=== PATIENT | female | born 2000 | race Caucasian/White ===

== ENCOUNTER → 2023-02-05 13:06 | Outpatient (CLI) | payer OTHER, SELFPAY ==
--- NOTE | 2023-02-07 16:31 | PM.PFT.1 ---
Pulmonary Function Test Referral & Results Date Patient Seen: 02/05/23 Results: The spirometry demonstrates an FVC of 3.90 L which is 99% of predicted. The FEV1 was measured at 2.87 L which is 85% of predicted. The FEV1/FVC ratio was 74 which is 85% of predicted. Interpretation: This study, which was done as forced spirometry alone, demonstrates probably normal pulmonary function. There may be a minimal reduction FEV1 suggesting the presence of minimal obstructive lung disease, although shape a flow volume loop does not really support this Clinical correlation suggested
== END ==
PROVIDERS: Referring Provider Chiropractor; Visit Provider Chiropractor
DX: J45.909 Unspecified asthma, uncomplicated (principal)
CPT/HCPCS: 94010; 94060

== ENCOUNTER 2024-06-03 10:30 | Outpatient (RCR) | payer OTHER, SELFPAY ==
--- NOTE | 2024-04-08 17:47 | PT.OIE ---
Current Diagnoses Hypermobility syndrome (04/08/24) Muscle weakness (generalized) (04/08/24) Abnormal posture (04/08/24) Visit Care Team Role Provider Type Malena Angel MD Attending Provider Non-Staff Family Provider Primary Care Provider Referring Provider Specialty: Family Practice Address: [address] [place] [address], [place], [address] Email: Physical Therapy Initial Evaluation PT-OP-A Visit Information Start: 04/08/24 07:38 Freq: Status: Active Protocol: Document 04/08/24 15:15 [facility] (Rec: 04/08/24 16:05 [facility] [id number]) Out-Patient Physical Therapy Visit Information Visit Information Visit Type Initial Evaluation Visit Start Time 15:17 Visit Stop Time 16:03 Visit Number 11/03 Number of [employer]WORK ENGINEER Visits 0 PT-OP-B Current Condition Start: 04/08/24 07:38 Freq: Status: Active Protocol: Document 04/08/24 15:15 [facility] (Rec: 04/08/24 16:05 [facility] [id number]) Current Condition History of Current Condition Onset Date childhood Current Complaints widespread pain (neck, wrists, knees) History of Current Condition Pt reports she has always had a bit of widespread pain. most frequnetly tendonitis issues that affects her all day long and her ability to sleep. her neck, wrist and knees are the areas she feels impact her the most. She is trying to figure out how to use her body correctly and dec pain. She said she keeps trying to get to see a ticket seller, but [facility] . Her mom got diagnosed recently w/mitral valve prolapse. recently just got ADHD dx. Trying to go to school and is planning to go to [employer]. 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 Pt reports talkign to her mom, she was evaled for jeuvinile RA and it was inconclusive. She has had pain since she was small. She has had Xrays for neck and back when she was going through disability process. Cervical spine strain noted; B cervical radiculopathy, sciatic radiculopathy, cervical instability are the diagnoses that came from imaging[place]. She was only going 1x/month and one issue at a time. She has had some labwork but unsure what and that was normal so far. lightheadedness and dizziness w/supine to sit and sit to stand and strenuous exercise; GONZALEZ -mostly frontal and post ear B-doesn't know triggers- will get sensitive to light and noise and has to go lay down in dark. Jaw pain also with eating and when wake up. sometimes so tense she has to massage it. mom has told her she grinds at night; she doenst notice clenching at night and eating sometimes makes it more sore. Dentist plans to wait to see if pain persists beofre giving mouth guard. knee pain is in ant knee and inf to patella. Hx of ankle strains Treatment Goals Patient/Caregiver Goals learn how to properly engage her muscles and avoid compensations & movement patterns; Learn what is normal ROM so can learn how to avoid excessive mobility; gain strength PT-OP-D Balance Start: 04/08/24 07:38 Freq: Status: Active Protocol: Document 04/08/24 15:15 [facility] (Rec: 04/08/24 16:05 [facility] [id number]) Balance Tests Single Limb Standing Single Limb- Right >30 sec- pt a little wobbly Single Limb- Left >30 sec- pt a little wobbly PT-OP-F Manual Assessment Start: 04/08/24 07:38 Freq: Status: Active Protocol: Document 04/08/24 15:15 [facility] (Rec: 04/08/24 16:05 [facility] [id number]) Manual Assessments Joint Mobility Assessment Joint Mobility Assessment tenderness B patellar tendon, B quads, B calves, ITB, R HS Other Manual Assessments Other Manual Assessments / Beighton scale PT-OP-G Mobility & Gait Start: 04/08/24 07:38 Freq: Status: Active Protocol: Document 04/08/24 15:15 [facility] (Rec: 04/08/24 16:05 [facility] [id number]) OP Gait Assessment Comments Gait Comments dec push off B; dec LUE arm swing PT-OP-J Posture/Palpation/Skin Start: 04/08/24 07:38 Freq: Status: Active Protocol: Document 04/08/24 15:15 [facility] (Rec: 04/08/24 16:05 [facility] [id number]) Posture Evaluation Gisele Postural Classification System Gisele Postural Classifications Posterior/Posterior Vertebral Compression Test 0 Elbow Flexion Test 1 Lumbar Protective Mechanism Left AP 0 Lumbar Protective Mechanism Right AP 0 Lumbar Protective Mechanism Left PA 0 Lumbar Protective Mechanism Right PA 0 Comments Posture Comments hyperext knees, L foot toed out, inc lorodosis, rot L trunk, ant tip B scap, slight fwd head PT-OP-K Range of Motion Start: 04/08/24 07:38 Freq: Status: Active Protocol: Document 04/08/24 15:15 [facility] (Rec: 04/08/24 16:05 [facility] [id number]) Cervical Spine Range of Motion Cervical Spine Active Degrees Flexion 69 Extension 65 Rotation Left 85 Rotation Right 81 Lateral Flexion Left 52 Lateral Flexion Right 49 Comments pain contralat side w/SB and rotation; post pain w/flex/ext ; 100% rot of trunk to L; 80% R w/pain in LB Ankle and Foot Goniometric Range of Motion Ankle and Foot ROM Limitations Comments 2 in to wall B PT-OP-M Strength Start: 04/08/24 07:38 Freq: Status: Active Protocol: Document 04/08/24 15:15 [facility] (Rec: 04/08/24 16:05 [facility] [id number]) Shoulder Strength Shoulder Manual Muscle Testing Right Flexion 4+ Good+ Extension 4+ Good+ Abduction (C5) 4+ Good+ External Rotation 4 Good Internal Rotation 4- Good- Left Flexion 4+ Good+ Extension 4+ Good+ Abduction (C5) 4 Good External Rotation 4 Good Internal Rotation 4- Good- Elbow/Forearm Strength Elbow and Forearm Manual Muscle Testing Right Flexion (C6) 4 Good Extension (C7) 5 Normal Pronation 4 Good Supination 4 Good Left Flexion (C6) 4 Good Extension (C7) 4+ Good+ Pronation 4 Good Supination 4 Good Comments pain w/MMT B Wrist Strength Wrist Manual Muscle Testing Left Flexion (C7) 4+ Good+ Extension (C6) 4+ Good+ Ulnar Deviation 5 Normal Radial Deviation 5 Normal Right Flexion (C7) 4+ Good+ Extension (C6) 4+ Good+ Ulnar Deviation 5 Normal Radial Deviation 5 Normal Comments painful W/MMT Hip Strength Hip Manual Muscle Testing Right Flexion (L2) 3+ Fair+ Extension (S1) 4+ Good+ Abduction 3+ Fair+ Adduction 3+ Fair+ External Rotation 4 Good Internal Rotation 4+ Good+ Left Flexion (L2) 3+ Fair+ Extension (S1) 4+ Good+ Abduction 3+ Fair+ Adduction 3+ Fair+ External Rotation 4 Good Internal Rotation 4+ Good+ Comments pain hip flexors w/hip flex Knee Strength Knee Manual Muscle Testing Right Flexion (S2) 4- Good- Extension (L3) 4 Good Left Flexion (S2) 4- Good- Extension (L3) 4 Good Comments pain ext -minor lat tracking B -frank neg Ankle/Foot Strength Ankle and Foot Manual Muscle Testing Right Dorsiflexion (L4) 5 Normal Plantarflexion (S1) 5 Normal Left Dorsiflexion (L4) 5 Normal Plantarflexion (S1) 5 Normal Comments 20 heel raises B PT-OP-T Assessment and Plan Start: 04/08/24 07:38 Freq: Status: Active Protocol: Document 04/08/24 15:15 [facility] (Rec: 04/08/24 16:05 [facility] [id number]) Physical Therapy Assessment Rehab Potential Rehabilitation Potential Good Evaluation Complexity Number of Personal Factors/Comorbidities 3 or More Number of Body Systems Impaired 4 or More Clinical Presentation at Evaluation Unstable Impairments Impairments Activity Tolerance,Balance, Functional Activities, Functional Mobility,Gait,Pain, Posture,ROM,Soft Tissue Mobility,Strength Goals mobility Short Term Goal (STG) Pt will have improved ankle DF to at least 3 in to wall in order to improve knee mechanics and improve knee pain STG Duration 05/18 [facility]itentiary Goal (LTG) Pt will have improved ankle DF to at least 4 in to wall in order to improve knee mechanics and improve knee pain LTG Duration 07/01 posture Short Term Goal (STG) Pt will score at least 2/5 on VCT in order to show improved postural stability. STG Duration 05/18 Penitentiary Goal (LTG) Pt will score at least 4/5 on VCT in order to show improved postural stability. LTG Duration 06/29 strength Short Term Goal (STG) Pt will be indep w/HEP for strength, moblity and posture. STG Duration 05/18 Penitentiary Goal (LTG) Pt will score at least 4+/5 on all LE and UE MMT B and at least 3/5 on EFT and LPM to show improved stability to make daily activities easier w /dec pain. LTG Duration 07/01 Assessment Summary Assessment Pt presents w/chronic pain throughout entire body that has been present since childhood w/no official diagnoses. She is most concerned re: B wrist pain, B knee pain and neck pain. She is 9/9 on Beighton scale which does show indication of hypermobility as MD referring diagnosis suggested. She has pain w/ROM and MMT and has weakness in core and poor postural alignment, which likely all contribute to her pain. [facility], but has not been seen yet and was told there is a long waitlist. She would benefit from skilled PT in order to work on postural stability, core stability, balance, gait mechanics and strength of UE and LE. Physical Therapy Plan Frequency and Duration Frequency of Treatment 2x/Week Duration of treatment (weeks) 12 Plan of Care Start Date 04/08/24 Plan of Care End Date 07/01/24 Therapeutic Interventions Therapeutic Interventions Balance Training,Gait Training ,Home Exercise Program,Joint Mobilizations,Manual Therapy, Neuromuscular Re-education, Patient/Caregiver Education, Self-Care/Home Management,Soft Tissue Mobilization,Taping, Therapeutic Activities, Therapeutic Exercises Next Visit Focus/Plan Next Note Type Treatment Note Next Visit Plan Start core exercsies and multijoint exercises; calf stretch, paloff press, bird dog/plank modified if tolerated, attempt squat versions manual: mobilize ankle joints & STM to calf; consider taping of knees
--- NOTE | 2024-04-08 17:47 | PT.OPPOC ---
Physical, Occupational & Speech Therapy At [facility] Current Diagnoses Hypermobility syndrome (04/08/24) Muscle weakness (generalized) (04/08/24) Abnormal posture (04/08/24) Visit Care Team Role Provider Type Malena Angel MD Attending Provider Non-Staff Family Provider Primary Care Provider Referring Provider Specialty: Family Practice Address: [address] [place] [address], [facility] Email: Plan Of Care PT-OP-T Assessment and Plan Start: 04/08/24 07:38 Freq: Status: Active Protocol: Document 04/08/24 15:15 [facility] (Rec: 04/08/24 16:05 [facility] [id number]) Physical Therapy Assessment Rehab Potential Rehabilitation Potential Good Evaluation Complexity Number of Personal Factors/Comorbidities 3 or More Number of Body Systems Impaired 4 or More Clinical Presentation at Evaluation Unstable Impairments Impairments Activity Tolerance,Balance, Functional Activities, Functional Mobility,Gait,Pain, Posture,ROM,Soft Tissue Mobility,Strength Goals mobility Short Term Goal (STG) Pt will have improved ankle DF to at least 3 in to wall in order to improve knee mechanics and improve knee pain STG Duration 05/18 [facility] Goal (LTG) Pt will have improved ankle DF to at least 4 in to wall in order to improve knee mechanics and improve knee pain LTG Duration 07/01 posture Short Term Goal (STG) Pt will score at least 2/5 on VCT in order to show improved postural stability. STG Duration 05/18 Doctor Of Podiatry Goal (LTG) Pt will score at least 4/5 on VCT in order to show improved postural stability. LTG Duration 06/29 strength Short Term Goal (STG) Pt will be indep w/HEP for strength, moblity and posture. STG Duration 05/18 Doctor Of Podiatry Goal (LTG) Pt will score at least 4+/5 on all LE and UE MMT B and at least 3/5 on EFT and LPM to show improved stability to make daily activities easier w /dec pain. LTG Duration 07/01 Assessment Summary Assessment Pt presents w/chronic pain throughout entire body that has been present since childhood w/no official diagnoses. She is most concerned re: B wrist pain, B knee pain and neck pain. She is 9/9 on Beighton scale which does show indication of hypermobility as MD referring diagnosis suggested. She has pain w/ROM and MMT and has weakness in core and poor postural alignment, which likely all contribute to her pain. [facility], but has not been seen yet and was told there is a long waitlist. She would benefit from skilled PT in order to work on postural stability, core stability, balance, gait mechanics and strength of UE and LE. Physical Therapy Plan Frequency and Duration Frequency of Treatment 2x/Week Duration of treatment (weeks) 12 Plan of Care Start Date 04/08/24 Plan of Care End Date 07/01/24 Therapeutic Interventions Therapeutic Interventions Balance Training,Gait Training ,Home Exercise Program,Joint Mobilizations,Manual Therapy, Neuromuscular Re-education, Patient/Caregiver Education, Self-Care/Home Management,Soft Tissue Mobilization,Taping, Therapeutic Activities, Therapeutic Exercises Next Visit Focus/Plan Next Note Type Treatment Note Next Visit Plan Start core exercsies and multijoint exercises; calf stretch, paloff press, bird dog/plank modified if tolerated, attempt squat versions manual: mobilize ankle joints & STM to calf; consider taping of knees Plan of Care Dates Plan of Care Start Date 04/08/24 Plan of Care End Date 07/01/24 Electronically Signed by: Delisa Ortiz, PT 04/08/24 2007 If you are in agreement with this Plan of Care, please return a signed and dated copy. I have reviewed this Plan of Care and certify that the skilled therapy services above are required to meet the patient?s needs. Physician Signature Date Printed Name and Credentials Clinical Instructor Signature Printed Name and Credentials
--- NOTE | 2024-04-13 18:17 | PT.OTN ---
Current Diagnoses Hypermobility syndrome (04/13/24) Muscle weakness (generalized) (04/13/24) Abnormal posture (04/13/24) Physical Therapy Treatment Note PT-OP-A Visit Information Start: 04/08/24 07:38 Freq: Status: Active Protocol: Document 04/13/24 16:52 [facility] (Rec: 04/13/24 18:16 [facility] [id number]) Out-Patient Physical Therapy Visit Information Visit Information Visit Type Treatment Note Visit Start Time 16:52 Visit Stop Time 17:35 Visit Number 2/15 Number of BIAS CUTTING MACHINE OPERATOR VERTICAL Visits 0 PT-OP-B Current Condition Start: 04/08/24 07:38 Freq: Status: Active Protocol: Document 04/08/24 15:15 [facility] (Rec: 04/08/24 16:05 [facility] [id number]) Current Condition History of Current Condition Onset Date childhood Current Complaints widespread pain (neck, wrists, knees) History of Current Condition Pt reports she has always had a bit of widespread pain. most frequnetly tendonitis issues that affects her all day long and her ability to sleep. her neck, wrist and knees are the areas she feels impact her the most. She is trying to figure out how to use her body correctly and dec pain. She said she keeps trying to get to see a sign maintenance, but has been unable d[place]t [facility] [place] . Her mom got diagnosed recently w/mitral valve prolapse. recently just got ADHD dx. Trying to go to school and is planning to go to [employer]. 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 Pt reports talkign to her mom, she was evaled for jeuvinile RA and it was inconclusive. She has had pain since she was small. She has had Xrays for neck and back when she was going through disability process. Cervical spine strain noted; B cervical radiculopathy, sciatic radiculopathy, cervical instability are the diagnoses that came from imaging[place]. She was only going 1x/month and one issue at a time. She has had some labwork but unsure what and that was normal so far. lightheadedness and dizziness w/supine to sit and sit to stand and strenuous exercise; GONZALEZ -mostly frontal and post ear B-doesn't know triggers- will get sensitive to light and noise and has to go lay down in dark. Jaw pain also with eating and when wake up. sometimes so tense she has to massage it. mom has told her she grinds at night; she doenst notice clenching at night and eating sometimes makes it more sore. Dentist plans to wait to see if pain persists beofre giving mouth guard. knee pain is in ant knee and inf to patella. Hx of ankle strains Treatment Goals Patient/Caregiver Goals learn how to properly engage her muscles and avoid compensations & movement patterns; Learn what is normal ROM so can learn how to avoid excessive mobility; gain strength PT-OP-C Subjective Start: 04/08/24 07:38 Freq: Status: Active Protocol: Document 04/13/24 16:52 [facility] (Rec: 04/13/24 18:16 [facility] [id number]) OP-PT Subjective Patient Comments Patient Comments pt reports she tried pilates but had difficulty keeping joints in correct place during exercises. PT-OP-D Balance Start: 04/08/24 07:38 Freq: Status: Active Protocol: Document 04/08/24 15:15 [facility] (Rec: 04/08/24 16:05 [facility] [id number]) Balance Tests Single Limb Standing Single Limb- Right >30 sec- pt a little wobbly Single Limb- Left >30 sec- pt a little wobbly PT-OP-F Manual Assessment Start: 04/08/24 07:38 Freq: Status: Active Protocol: Document 04/08/24 15:15 [facility] (Rec: 04/08/24 16:05 [facility] [id number]) Manual Assessments Joint Mobility Assessment Joint Mobility Assessment tenderness B patellar tendon, B quads, B calves, ITB, R HS Other Manual Assessments Other Manual Assessments / Beighton scale PT-OP-G Mobility & Gait Start: 04/08/24 07:38 Freq: Status: Active Protocol: Document 04/08/24 15:15 [facility] (Rec: 04/08/24 16:05 [facility] [id number]) OP Gait Assessment Comments Gait Comments dec push off B; dec LUE arm swing PT-OP-J Posture/Palpation/Skin Start: 04/08/24 07:38 Freq: Status: Active Protocol: Document 04/08/24 15:15 [facility] (Rec: 04/08/24 16:05 [facility] [id number]) Posture Evaluation [facility] Postural Classification System [facility] Postural Classifications Posterior/Posterior Vertical Compression Test 0 Elbow Flexion Test 1 Lumbar Protective Mechanism Left AP 0 Lumbar Protective Mechanism Right AP 0 Lumbar Protective Mechanism Left PA 0 Lumbar Protective Mechanism Right PA 0 Comments Posture Comments hyperext knees, L foot toed out, inc lorodosis, rot L trunk, ant tip B scap, slight fwd head PT-OP-K Range of Motion Start: 04/08/24 07:38 Freq: Status: Active Protocol: Document 04/08/24 15:15 [facility] (Rec: 04/08/24 16:05 [facility] [id number]) Cervical Spine Range of Motion Cervical Spine Active Degrees Flexion 69 Extension 65 Rotation Left 85 Rotation Right 81 Lateral Flexion Left 52 Lateral Flexion Right 49 Comments pain contralat side w/SB and rotation; post pain w/flex/ext ; 100% rot of trunk to L; 80% R w/pain in LB Ankle and Foot Goniometric Range of Motion Ankle and Foot ROM Limitations Comments 2 in to wall B PT-OP-M Strength Start: 04/08/24 07:38 Freq: Status: Active Protocol: Document 04/08/24 15:15 [facility] (Rec: 04/08/24 16:05 [facility] [id number]) Shoulder Strength Shoulder Manual Muscle Testing Right Flexion 4+ Good+ Extension 4+ Good+ Abduction (C5) 4+ Good+ External Rotation 4 Good Internal Rotation 4- Good- Left Flexion 4+ Good+ Extension 4+ Good+ Abduction (C5) 4 Good External Rotation 4 Good Internal Rotation 4- Good- Elbow/Forearm Strength Elbow and Forearm Manual Muscle Testing Right Flexion (C6) 4 Good Extension (C7) 5 Normal Pronation 4 Good Supination 4 Good Left Flexion (C6) 4 Good Extension (C7) 4+ Good+ Pronation 4 Good Supination 4 Good Comments pain w/MMT B Wrist Strength Wrist Manual Muscle Testing Left Flexion (C7) 4+ Good+ Extension (C6) 4+ Good+ Ulnar Deviation 5 Normal Radial Deviation 5 Normal Right Flexion (C7) 4+ Good+ Extension (C6) 4+ Good+ Ulnar Deviation 5 Normal Radial Deviation 5 Normal Comments painful W/MMT Hip Strength Hip Manual Muscle Testing Right Flexion (L2) 3+ Fair+ Extension (S1) 4+ Good+ Abduction 3+ Fair+ Adduction 3+ Fair+ External Rotation 4 Good Internal Rotation 4+ Good+ Left Flexion (L2) 3+ Fair+ Extension (S1) 4+ Good+ Abduction 3+ Fair+ Adduction 3+ Fair+ External Rotation 4 Good Internal Rotation 4+ Good+ Comments pain hip flexors w/hip flex Knee Strength Knee Manual Muscle Testing Right Flexion (S2) 4- Good- Extension (L3) 4 Good Left Flexion (S2) 4- Good- Extension (L3) 4 Good Comments pain ext -minor lat tracking B -frank neg Ankle/Foot Strength Ankle and Foot Manual Muscle Testing Right Dorsiflexion (L4) 5 Normal Plantarflexion (S1) 5 Normal Left Dorsiflexion (L4) 5 Normal Plantarflexion (S1) 5 Normal Comments 20 heel raises B PT-OP-Q Treatments Start: 04/08/24 07:38 Freq: Status: Active Protocol: Document 04/13/24 16:52 [facility] (Rec: 04/13/24 18:16 [facility] [id number]) Therapeutic Exercises Prone Exercises plank Prone Exercise Name full Side bilateral Reps/Minutes [id number] Comments cues for neutral spine and neck Standing Exercises paloff press Side bilateral Equipment Used 1 green band Reps/Minutes 15 ea Comments cues neutral spine and wrists squat Side bilateral Reps/Minutes 10 Comments cues neutral back hip hinge Standing Exercise Name w/dowel on back Side bilateral Reps/Minutes 15 Comments cues no spine motion Other Exercises bird dog Side bilateral Equipment Used foam roll on back Reps/Minutes 12 ea Comments cues neutral spine and neck Manual Therapy Treatment Consent Patient gave verbal consent for manual Yes treatment Joint Mobilizations ankle/foot Comments B calcaneal distraction FM R lat tilt and glide FM R distal fibular proximal FM PT-OP-T Assessment and Plan Start: 04/08/24 07:38 Freq: Status: Active Protocol: Document 04/13/24 16:52 [facility] (Rec: 04/13/24 17:43 [facility] [id number]) Physical Therapy Assessment Goals mobility Short Term Goal (STG) Pt will have improved ankle DF to at least 3 in to wall in order to improve knee mechanics and improve knee pain STG Duration 05/18 [facility]ci Goal (LTG) Pt will have improved ankle DF to at least 4 in to wall in order to improve knee mechanics and improve knee pain LTG Duration 07/01 posture Short Term Goal (STG) Pt will score at least 2/5 on VCT in order to show improved postural stability. STG Duration 05/18 Assistant Community Manager Goal (LTG) Pt will score at least 4/5 on VCT in order to show improved postural stability. LTG Duration 06/29 strength Short Term Goal (STG) Pt will be indep w/HEP for strength, moblity and posture. STG Duration 05/18 Assistant Community Manager Goal (LTG) Pt will score at least 4+/5 on all LE and UE MMT B and at least 3/5 on EFT and LPM to show improved stability to make daily activities easier w /dec pain. LTG Duration 07/01 Assessment Summary Assessment Pt required inc time to work on form w/exercises and work on neutral spine position and isolation of spine. She did improve w/cues and education throughout session. Improved B DF w/manual care. Physical Therapy Plan Frequency and Duration Frequency of Treatment 2x/Week Duration of treatment (weeks) 12 Plan of Care Start Date 04/08/24 Plan of Care End Date 07/01/24 Next Visit Focus/Plan Next Note Type Treatment Note Next Visit Plan review exercises; cont to advance exercise progression for multi joint exercises work on B ankle mobility
--- NOTE | 2024-04-15 16:17 | PT.OTN ---
Current Diagnoses Hypermobility syndrome (04/15/24) Muscle weakness (generalized) (04/15/24) Abnormal posture (04/15/24) Physical Therapy Treatment Note PT-OP-A Visit Information Start: 04/08/24 07:38 Freq: Status: Active Protocol: Document 04/15/24 13:48 [facility] (Rec: 04/15/24 16:15 [facility] [id number]) Out-Patient Physical Therapy Visit Information Visit Information Visit Type Treatment Note Visit Note Visit [email or web address] Access Code: [email or web address] Pt late, attributes to the line at check in. Visit Start Time 14:38 Visit Stop Time 15:15 Visit Number 3/ Number of OBSTETRICS GYNECOLOGY MD Visits 1 PT-OP-B Current Condition Start: 04/08/24 07:38 Freq: Status: Active Protocol: Document 04/08/24 15:15 [facility] (Rec: 04/08/24 16:05 [facility] [id number]) Current Condition History of Current Condition Onset Date childhood Current Complaints widespread pain (neck, wrists, knees) History of Current Condition Pt reports she has always had a bit of widespread pain. most frequnetly tendonitis issues that affects her all day long and her ability to sleep. her neck, wrist and knees are the areas she feels impact her the most. She is trying to figure out how to use her body correctly and dec pain. She said she keeps trying to get to see a appraiser irrigation tax, but has been unable d/t [facility] process . Her mom got diagnosed recently w/mitral valve prolapse. recently just got ADHD dx. Trying to go to school and is planning to go to [place]. 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 Pt reports talkign to her mom, she was evaled for jeuvinile RA and it was inconclusive. She has had pain since she was small. She has had Xrays for neck and back when she was going through disability process. Cervical spine strain noted; B cervical radiculopathy, sciatic radiculopathy, cervical instability are the diagnoses that came from imaging[place]. She was only going 1x/month and one issue at a time. She has had some labwork but unsure what and that was normal so far. lightheadedness and dizziness w/supine to sit and sit to stand and strenuous exercise; GONZALEZ -mostly frontal and post ear B-doesn't know triggers- will get sensitive to light and noise and has to go lay down in dark. Jaw pain also with eating and when wake up. sometimes so tense she has to massage it. mom has told her she grinds at night; she doenst notice clenching at night and eating sometimes makes it more sore. Dentist plans to wait to see if pain persists beofre giving mouth guard. knee pain is in ant knee and inf to patella. Hx of ankle strains Treatment Goals Patient/Caregiver Goals learn how to properly engage her muscles and avoid compensations & movement patterns; Learn what is normal ROM so can learn how to avoid excessive mobility; gain strength PT-OP-C Subjective Start: 04/08/24 07:38 Freq: Status: Active Protocol: Document 04/15/24 13:48 [facility] (Rec: 04/15/24 16:15 [facility] [id number]) OP-PT Subjective Patient Comments Patient Comments Patient reports she is the same. Patient reports 01/27 start of session. PT-OP-D Balance Start: 04/08/24 07:38 Freq: Status: Active Protocol: Document 04/08/24 15:15 [facility] (Rec: 04/08/24 16:05 [facility] [id number]) Balance Tests Single Limb Standing Single Limb- Right >30 sec- pt a little wobbly Single Limb- Left >30 sec- pt a little wobbly PT-OP-F Manual Assessment Start: 04/08/24 07:38 Freq: Status: Active Protocol: Document 04/08/24 15:15 [facility] (Rec: 04/08/24 16:05 [facility] [id number]) Manual Assessments Joint Mobility Assessment Joint Mobility Assessment tenderness B patellar tendon, B quads, B calves, ITB, R HS Other Manual Assessments Other Manual Assessments 06/28 Beighton scale PT-OP-G Mobility & Gait Start: 04/08/24 07:38 Freq: Status: Active Protocol: Document 04/08/24 15:15 [facility] (Rec: 04/08/24 16:05 [facility] [id number]) OP Gait Assessment Comments Gait Comments dec push off B; dec LUE arm swing PT-OP-J Posture/Palpation/Skin Start: 04/08/24 07:38 Freq: Status: Active Protocol: Document 04/08/24 15:15 [facility] (Rec: 04/08/24 16:05 [facility] [id number]) Posture Evaluation [facility] Postural Classification System [facility] Postural Classifications Posterior/Posterior Vertical Compression Test 0 Elbow Flexion Test 1 Lumbar Protective Mechanism Left AP 0 Lumbar Protective Mechanism Right AP 0 Lumbar Protective Mechanism Left PA 0 Lumbar Protective Mechanism Right PA 0 Comments Posture Comments hyperext knees, L foot toed out, inc lorodosis, rot L trunk, ant tip B scap, slight fwd head PT-OP-K Range of Motion Start: 04/08/24 07:38 Freq: Status: Active Protocol: Document 04/08/24 15:15 [facility] (Rec: 04/08/24 16:05 [facility] [id number]) Cervical Spine Range of Motion Cervical Spine Active Degrees Flexion 69 Extension 65 Rotation Left 85 Rotation Right 81 Lateral Flexion Left 52 Lateral Flexion Right 49 Comments pain contralat side w/SB and rotation; post pain w/flex/ext ; 100% rot of trunk to L; 80% R w/pain in LB Ankle and Foot Goniometric Range of Motion Ankle and Foot ROM Limitations Comments 2 in to wall B PT-OP-M Strength Start: 04/08/24 07:38 Freq: Status: Active Protocol: Document 04/08/24 15:15 [facility] (Rec: 04/08/24 16:05 [facility] [id number]) Shoulder Strength Shoulder Manual Muscle Testing Right Flexion 4+ Good+ Extension 4+ Good+ Abduction (C5) 4+ Good+ External Rotation 4 Good Internal Rotation 4- Good- Left Flexion 4+ Good+ Extension 4+ Good+ Abduction (C5) 4 Good External Rotation 4 Good Internal Rotation 4- Good- Elbow/Forearm Strength Elbow and Forearm Manual Muscle Testing Right Flexion (C6) 4 Good Extension (C7) 5 Normal Pronation 4 Good Supination 4 Good Left Flexion (C6) 4 Good Extension (C7) 4+ Good+ Pronation 4 Good Supination 4 Good Comments pain w/MMT B Wrist Strength Wrist Manual Muscle Testing Left Flexion (C7) 4+ Good+ Extension (C6) 4+ Good+ Ulnar Deviation 5 Normal Radial Deviation 5 Normal Right Flexion (C7) 4+ Good+ Extension (C6) 4+ Good+ Ulnar Deviation 5 Normal Radial Deviation 5 Normal Comments painful W/MMT Hip Strength Hip Manual Muscle Testing Right Flexion (L2) 3+ Fair+ Extension (S1) 4+ Good+ Abduction 3+ Fair+ Adduction 3+ Fair+ External Rotation 4 Good Internal Rotation 4+ Good+ Left Flexion (L2) 3+ Fair+ Extension (S1) 4+ Good+ Abduction 3+ Fair+ Adduction 3+ Fair+ External Rotation 4 Good Internal Rotation 4+ Good+ Comments pain hip flexors w/hip flex Knee Strength Knee Manual Muscle Testing Right Flexion (S2) 4- Good- Extension (L3) 4 Good Left Flexion (S2) 4- Good- Extension (L3) 4 Good Comments pain ext -minor lat tracking B -frank neg Ankle/Foot Strength Ankle and Foot Manual Muscle Testing Right Dorsiflexion (L4) 5 Normal Plantarflexion (S1) 5 Normal Left Dorsiflexion (L4) 5 Normal Plantarflexion (S1) 5 Normal Comments 20 heel raises B PT-OP-Q Treatments Start: 04/08/24 07:38 Freq: Status: Active Protocol: Document 04/15/24 13:48 [facility] (Rec: 04/15/24 16:15 [facility] [id number]) Therapeutic Exercises Sidelying Exercises open book Sidelying Exercise Name open book Reps/Minutes X3 for 3 breaths Sitting Exercises AROM DF Side bilateral Reps/Minutes one minute Comments verbal cues seated hip abduction Side bilateral Resistance level 4 blue band Reps/Minutes one minute Standing Exercises calf stretches Standing Exercise Name gastroc & soleus Reps/Minutes 2X 60 seconds each stretch Comments verbal and visual cues squat Standing Exercise Name squat with band Resistance level 4 blue band Reps/Minutes 10 Manual Therapy Treatment Consent Patient gave verbal consent for manual Yes treatment Soft Tissue Mobilization calf muscles Body Location bilateral calf muscles Mobilization Type Cross-Friction,Rolling Intensity/Depth Moderate Body Position Prone Comments avoiding bruises bilateral calf muscles, monitored for pain Joint Mobilizations ankle/foot Joint bilateral talocrural Direction AP Grade IV Body Position Standing Reps/Duration 2x10 each LE Comments Mulligan with movement TC mobilization PT-OP-T Assessment and Plan Start: 04/08/24 07:38 Freq: Status: Active Protocol: Document 04/15/24 13:48 [facility] (Rec: 04/15/24 16:15 [facility] [id number]) Physical Therapy Assessment Goals mobility Short Term Goal (STG) Pt will have improved ankle DF to at least 3 in to wall in order to improve knee mechanics and improve knee pain STG Duration 05/18 Detention Goal (LTG) Pt will have improved ankle DF to at least 4 in to wall in order to improve knee mechanics and improve knee pain LTG Duration 07/01 posture Short Term Goal (STG) Pt will score at least 2/5 on VCT in order to show improved postural stability. STG Duration 05/18 Detention Goal (LTG) Pt will score at least 4/5 on VCT in order to show improved postural stability. LTG Duration 06/29 strength Short Term Goal (STG) Pt will be indep w/HEP for strength, moblity and posture. STG Duration 05/18 Detention Goal (LTG) Pt will score at least 4+/5 on all LE and UE MMT B and at least 3/5 on EFT and LPM to show improved stability to make daily activities easier w /dec pain. LTG Duration 07/01 Assessment Summary Assessment Patient able to perform squat with band with good form adequate hip hinge, rates all over body pain 4/10 end of session ie no change. Physical Therapy Plan Frequency and Duration Frequency of Treatment 2x/Week Duration of treatment (weeks) 12 Plan of Care Start Date 04/08/24 Plan of Care End Date 07/01/24 Next Visit Focus/Plan Next Note Type Treatment Note Next Visit Plan review exercises; cont to advance exercise progression for multi joint exercises work on B ankle mobility, assess iveth to previous session and HEP updates
--- NOTE | 2024-04-20 18:21 | PT.OTN ---
Addendum entered and electronically signed by Delisa Ortiz, PT 04/22/24 13:17: PT direct supervision and direction to student PT Erik Whalen throughout session Original Note: Current Diagnoses Hypermobility syndrome (04/20/24) Muscle weakness (generalized) (04/20/24) Abnormal posture (04/20/24) Physical Therapy Treatment Note PT-OP-A Visit Information Start: 04/08/24 07:38 Freq: Status: Active Protocol: Document 04/20/24 11:20 JG (Rec: 04/20/24 12:51 J [id number]) Out-Patient Physical Therapy Visit Information Visit Information Visit Type Treatment Note Visit Start Time 11:20 Visit Stop Time 12:02 Visit Number 02/01 Number of FOOD SERVICE EMPLOYEE Visits 2 PT-OP-B Current Condition Start: 04/08/24 07:38 Freq: Status: Active Protocol: Document 04/08/24 15:15 [facility] (Rec: 04/08/24 16:05 [facility] [id number]) Current Condition History of Current Condition Onset Date childhood Current Complaints widespread pain (neck, wrists, knees) History of Current Condition Pt reports she has always had a bit of widespread pain. most frequnetly tendonitis issues that affects her all day long and her ability to sleep. her neck, wrist and knees are the areas she feels impact her the most. She is trying to figure out how to use her body correctly and dec pain. She said she keeps trying to get to see a communications programmer, but has been unable d[facility]t [facility] . Her mom got diagnosed recently w/mitral valve prolapse. recently just got ADHD dx. Trying to go to school and is planning to go to [employer]. 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 Pt reports talkign to her mom, she was evaled for jeuvinile RA and it was inconclusive. She has had pain since she was small. She has had Xrays for neck and back when she was going through disability process. Cervical spine strain noted; B cervical radiculopathy, sciatic radiculopathy, cervical instability are the diagnoses that came from imaging[place]. She was only going 1x/month and one issue at a time. She has had some labwork but unsure what and that was normal so far. lightheadedness and dizziness w/supine to sit and sit to stand and strenuous exercise; GONZALEZ -mostly frontal and post ear B-doesn't know triggers- will get sensitive to light and noise and has to go lay down in dark. Jaw pain also with eating and when wake up. sometimes so tense she has to massage it. mom has told her she grinds at night; she doenst notice clenching at night and eating sometimes makes it more sore. Dentist plans to wait to see if pain persists beofre giving mouth guard. knee pain is in ant knee and inf to patella. Hx of ankle strains Treatment Goals Patient/Caregiver Goals learn how to properly engage her muscles and avoid compensations & movement patterns; Learn what is normal ROM so can learn how to avoid excessive mobility; gain strength PT-OP-C Subjective Start: 04/08/24 07:38 Freq: Status: Active Protocol: Document 04/20/24 11:20 JG (Rec: 04/20/24 12:51 JG [id number]) OP-PT Subjective Patient Comments Patient Comments Overall feeling the same. HEP is going well and nothing is painful. She mentioned that she is trying to get into the routine Patient Reported Progress Same PT-OP-D Balance Start: 04/08/24 07:38 Freq: Status: Active Protocol: Document 04/08/24 15:15 [facility] (Rec: 04/08/24 16:05 [facility] [id number]) Balance Tests Single Limb Standing Single Limb- Right >30 sec- pt a little wobbly Single Limb- Left >30 sec- pt a little wobbly PT-OP-F Manual Assessment Start: 04/08/24 07:38 Freq: Status: Active Protocol: Document 04/08/24 15:15 [facility] (Rec: 04/08/24 16:05 [facility] [id number]) Manual Assessments Joint Mobility Assessment Joint Mobility Assessment tenderness B patellar tendon, B quads, B calves, ITB, R HS Other Manual Assessments Other Manual Assessments 06/28 Beighton scale PT-OP-G Mobility & Gait Start: 04/08/24 07:38 Freq: Status: Active Protocol: Document 04/08/24 15:15 [facility] (Rec: 04/08/24 16:05 [facility] [id number]) OP Gait Assessment Comments Gait Comments dec push off B; dec LUE arm swing PT-OP-J Posture/Palpation/Skin Start: 04/08/24 07:38 Freq: Status: Active Protocol: Document 04/08/24 15:15 [facility] (Rec: 04/08/24 16:05 [facility] [id number]) Posture Evaluation [facility] Postural Classification System [facility] Postural Classifications Posterior/Posterior Vertical Compression Test 0 Elbow Flexion Test 1 Lumbar Protective Mechanism Left AP 0 Lumbar Protective Mechanism Right AP 0 Lumbar Protective Mechanism Left PA 0 Lumbar Protective Mechanism Right PA 0 Comments Posture Comments hyperext knees, L foot toed out, inc lorodosis, rot L trunk, ant tip B scap, slight fwd head PT-OP-K Range of Motion Start: 04/08/24 07:38 Freq: Status: Active Protocol: Document 04/08/24 15:15 [facility] (Rec: 04/08/24 16:05 [facility] [id number]) Cervical Spine Range of Motion Cervical Spine Active Degrees Flexion 69 Extension 65 Rotation Left 85 Rotation Right 81 Lateral Flexion Left 52 Lateral Flexion Right 49 Comments pain contralat side w/SB and rotation; post pain w/flex/ext ; 100% rot of trunk to L; 80% R w/pain in LB Ankle and Foot Goniometric Range of Motion Ankle and Foot ROM Limitations Comments 2 in to wall B PT-OP-M Strength Start: 04/08/24 07:38 Freq: Status: Active Protocol: Document 04/08/24 15:15 [facility] (Rec: 04/08/24 16:05 [facility] [id number]) Shoulder Strength Shoulder Manual Muscle Testing Right Flexion 4+ Good+ Extension 4+ Good+ Abduction (C5) 4+ Good+ External Rotation 4 Good Internal Rotation 4- Good- Left Flexion 4+ Good+ Extension 4+ Good+ Abduction (C5) 4 Good External Rotation 4 Good Internal Rotation 4- Good- Elbow/Forearm Strength Elbow and Forearm Manual Muscle Testing Right Flexion (C6) 4 Good Extension (C7) 5 Normal Pronation 4 Good Supination 4 Good Left Flexion (C6) 4 Good Extension (C7) 4+ Good+ Pronation 4 Good Supination 4 Good Comments pain w/MMT B Wrist Strength Wrist Manual Muscle Testing Left Flexion (C7) 4+ Good+ Extension (C6) 4+ Good+ Ulnar Deviation 5 Normal Radial Deviation 5 Normal Right Flexion (C7) 4+ Good+ Extension (C6) 4+ Good+ Ulnar Deviation 5 Normal Radial Deviation 5 Normal Comments painful W/MMT Hip Strength Hip Manual Muscle Testing Right Flexion (L2) 3+ Fair+ Extension (S1) 4+ Good+ Abduction 3+ Fair+ Adduction 3+ Fair+ External Rotation 4 Good Internal Rotation 4+ Good+ Left Flexion (L2) 3+ Fair+ Extension (S1) 4+ Good+ Abduction 3+ Fair+ Adduction 3+ Fair+ External Rotation 4 Good Internal Rotation 4+ Good+ Comments pain hip flexors w/hip flex Knee Strength Knee Manual Muscle Testing Right Flexion (S2) 4- Good- Extension (L3) 4 Good Left Flexion (S2) 4- Good- Extension (L3) 4 Good Comments pain ext -minor lat tracking B -frank neg Ankle/Foot Strength Ankle and Foot Manual Muscle Testing Right Dorsiflexion (L4) 5 Normal Plantarflexion (S1) 5 Normal Left Dorsiflexion (L4) 5 Normal Plantarflexion (S1) 5 Normal Comments 20 heel raises B PT-OP-Q Treatments Start: 04/08/24 07:38 Freq: Status: Active Protocol: Document 04/20/24 11:20 JG (Rec: 04/20/24 12:51 JG [id number]) Therapeutic Exercises Supine Exercises Foam rolls Supine Exercise Name 1. HABD UE 2. Flexion of UE Side bilateral Equipment Used Full foam roll Reps/Minutes 1x10 Comments Cued to avoid ext of lumbar spine Standing Exercises paloff press Side bilateral Equipment Used 1 green band Reps/Minutes 15 ea Comments Cue neutral spine squat Standing Exercise Name squat with band Resistance level 3 green band Reps/Minutes 25 Comments Cues to limit hip hinge and stick but out. Squeeze butt at top Other Exercises bird dog Side bilateral Equipment Used Foam pad on back Reps/Minutes 10 ea Comments cues neutral spine and neck Manual Therapy Treatment Consent Patient gave verbal consent for manual Yes treatment Soft Tissue Mobilization calf muscles Body Location bilateral calf muscles Mobilization Type Cross-Friction,Rolling, Sustained Pressure Intensity/Depth Moderate Comments Some brusing on R calf noted prior to manual. Avoided area of treatment Joint Mobilizations AP Tib Joint Tib Fib Direction AP Grade IV Body Position Standing Reps/Duration 1x10 ea ankle/foot Joint bilateral talocrural Direction AP Grade IV Body Position Standing Reps/Duration 2x15 each LE Comments Mulligan with movement TC mobilization PT-OP-T Assessment and Plan Start: 06/20/24 07:38 Freq: Status: Active Protocol: Document 04/20/24 11:20 [facility] (Rec: 04/20/24 12:51 [id number]) Physical Therapy Assessment Goals mobility Short Term Goal (STG) Pt will have improved ankle DF to at least 3 in to wall in order to improve knee mechanics and improve knee pain STG Duration 05/18 Custodial Goal (LTG) Pt will have improved ankle DF to at least 4 in to wall in order to improve knee mechanics and improve knee pain LTG Duration 07/01 posture Short Term Goal (STG) Pt will score at least 2/5 on VCT in order to show improved postural stability. STG Duration 05/18 Custodial Goal (LTG) Pt will score at least 4/5 on VCT in order to show improved postural stability. LTG Duration 06/29 strength Short Term Goal (STG) Pt will be indep w/HEP for strength, moblity and posture. STG Duration 05/18 Custodial Goal (LTG) Pt will score at least 4+/5 on all LE and UE MMT B and at least 3/5 on EFT and LPM to show improved stability to make daily activities easier w /dec pain. LTG Duration 07/01 Assessment Summary Assessment Pt showed good progression with exercises. Measured pts dorsiflexion using calf stretch to wall: L 3' and R 2 1/4'. Measured post exercise/ manual R improved to 2 3/4'. Squat form improved with band. Pt was able to perform Pallof press with no wrist discomfort and neutral position. Pt denied pain during treatment session Physical Therapy Plan Frequency and Duration Frequency of Treatment 2x/Week Duration of treatment (weeks) 12 Plan of Care Start Date 04/08/24 Plan of Care End Date 07/01/24 Next Visit Focus/Plan Next Note Type Treatment Note Next Visit Plan review exercises; cont to advance exercise progression for multi joint exercises work on B ankle mobility, assess iveth to previous session
--- NOTE | 2024-04-28 18:08 | PT.OTN ---
Addendum entered and electronically signed by Delisa Ortiz, PT 04/29/24 18:02: PT direct supervision and direction to student PT Erik Whalen throughout session Original Note: Current Diagnoses Hypermobility syndrome (04/28/24) Muscle weakness (generalized) (04/28/24) Abnormal posture (04/28/24) Physical Therapy Treatment Note PT-OP-A Visit Information Start: 04/08/24 07:38 Freq: Status: Active Protocol: Document 04/28/24 14:32 JG (Rec: 04/28/24 17:05 JG [id number]) Out-Patient Physical Therapy Visit Information Visit Information Visit Type Treatment Note Visit Start Time 14:32 Visit Stop Time 15:16 Visit Number 03/03 Number of AIRCRAFT PNEUDRAULIC SYSTEMS MECHANIC Visits 0 PT-OP-B Current Condition Start: 04/08/24 07:38 Freq: Status: Active Protocol: Document 04/08/24 15:15 [facility] (Rec: 04/08/24 16:05 [facility] [id number]) Current Condition History of Current Condition Onset Date childhood Current Complaints widespread pain (neck, wrists, knees) History of Current Condition Pt reports she has always had a bit of widespread pain. most frequnetly tendonitis issues that affects her all day long and her ability to sleep. her neck, wrist and knees are the areas she feels impact her the most. She is trying to figure out how to use her body correctly and dec pain. She said she keeps trying to get to see a automotive engineering technician, but has been unable d/t [facility] process . Her mom got diagnosed recently w/mitral valve prolapse. recently just got ADHD dx. Trying to go to school and is planning to go to [employer]. 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 Pt reports talkign to her mom, she was evaled for jeuvinile RA and it was inconclusive. She has had pain since she was small. She has had Xrays for neck and back when she was going through disability process. Cervical spine strain noted; B cervical radiculopathy, sciatic radiculopathy, cervical instability are the diagnoses that came from imaging. [place]. She was only going 1x/month and one issue at a time. She has had some labwork but unsure what and that was normal so far. lightheadedness and dizziness w/supine to sit and sit to stand and strenuous exercise; GONZALEZ -mostly frontal and post ear B-doesn't know triggers- will get sensitive to light and noise and has to go lay down in dark. Jaw pain also with eating and when wake up. sometimes so tense she has to massage it. mom has told her she grinds at night; she doenst notice clenching at night and eating sometimes makes it more sore. Dentist plans to wait to see if pain persists beofre giving mouth guard. knee pain is in ant knee and inf to patella. Hx of ankle strains Treatment Goals Patient/Caregiver Goals learn how to properly engage her muscles and avoid compensations & movement patterns; Learn what is normal ROM so can learn how to avoid excessive mobility; gain strength PT-OP-C Subjective Start: 04/08/24 07:38 Freq: Status: Active Protocol: Document 04/28/24 14:32 JG (Rec: 04/28/24 17:05 JG [id number]) OP-PT Subjective Patient Comments Patient Comments Pt states that she ran 3.5 miles the other day and that she felt fine same day. Following day she had pain in B hips and along IT band, and R knee. Pt has been doing more squats on her own d/t them feeling good Patient Reported Progress Same PT-OP-D Balance Start: 04/08/24 07:38 Freq: Status: Active Protocol: Document 04/08/24 15:15 [facility] (Rec: 04/08/24 16:05 [facility] [id number]) Balance Tests Single Limb Standing Single Limb- Right >30 sec- pt a little wobbly Single Limb- Left >30 sec- pt a little wobbly PT-OP-F Manual Assessment Start: 04/08/24 07:38 Freq: Status: Active Protocol: Document 04/08/24 15:15 [facility] (Rec: 04/08/24 16:05 [facility] [id number]) Manual Assessments Joint Mobility Assessment Joint Mobility Assessment tenderness B patellar tendon, B quads, B calves, ITB, R HS Other Manual Assessments Other Manual Assessments 06/28 Beighton scale PT-OP-G Mobility & Gait Start: 04/08/24 07:38 Freq: Status: Active Protocol: Document 04/08/24 15:15 [facility] (Rec: 04/08/24 16:05 [facility] [id number]) OP Gait Assessment Comments Gait Comments dec push off B; dec LUE arm swing PT-OP-J Posture/Palpation/Skin Start: 04/08/24 07:38 Freq: Status: Active Protocol: Document 04/08/24 15:15 [facility] (Rec: 04/08/24 16:05 [facility] [id number]) Posture Evaluation [facility] Postural Classification System [facility] Postural Classifications Posterior/Posterior Vertical Compression Test 0 Elbow Flexion Test 1 Lumbar Protective Mechanism Left AP 0 Lumbar Protective Mechanism Right AP 0 Lumbar Protective Mechanism Left PA 0 Lumbar Protective Mechanism Right PA 0 Comments Posture Comments hyperext knees, L foot toed out, inc lorodosis, rot L trunk, ant tip B scap, slight fwd head PT-OP-K Range of Motion Start: 04/08/24 07:38 Freq: Status: Active Protocol: Document 04/08/24 15:15 [facility] (Rec: 04/08/24 16:05 [facility] [id number]) Cervical Spine Range of Motion Cervical Spine Active Degrees Flexion 69 Extension 65 Rotation Left 85 Rotation Right 81 Lateral Flexion Left 52 Lateral Flexion Right 49 Comments pain contralat side w/SB and rotation; post pain w/flex/ext ; 100% rot of trunk to L; 80% R w/pain in LB Ankle and Foot Goniometric Range of Motion Ankle and Foot ROM Limitations Comments 2 in to wall B PT-OP-M Strength Start: 04/08/24 07:38 Freq: Status: Active Protocol: Document 04/08/24 15:15 [facility] (Rec: 04/08/24 16:05 [facility] [id number]) Shoulder Strength Shoulder Manual Muscle Testing Right Flexion 4+ Good+ Extension 4+ Good+ Abduction (C5) 4+ Good+ External Rotation 4 Good Internal Rotation 4- Good- Left Flexion 4+ Good+ Extension 4+ Good+ Abduction (C5) 4 Good External Rotation 4 Good Internal Rotation 4- Good- Elbow/Forearm Strength Elbow and Forearm Manual Muscle Testing Right Flexion (C6) 4 Good Extension (C7) 5 Normal Pronation 4 Good Supination 4 Good Left Flexion (C6) 4 Good Extension (C7) 4+ Good+ Pronation 4 Good Supination 4 Good Comments pain w/MMT B Wrist Strength Wrist Manual Muscle Testing Left Flexion (C7) 4+ Good+ Extension (C6) 4+ Good+ Ulnar Deviation 5 Normal Radial Deviation 5 Normal Right Flexion (C7) 4+ Good+ Extension (C6) 4+ Good+ Ulnar Deviation 5 Normal Radial Deviation 5 Normal Comments painful W/MMT Hip Strength Hip Manual Muscle Testing Right Flexion (L2) 3+ Fair+ Extension (S1) 4+ Good+ Abduction 3+ Fair+ Adduction 3+ Fair+ External Rotation 4 Good Internal Rotation 4+ Good+ Left Flexion (L2) 3+ Fair+ Extension (S1) 4+ Good+ Abduction 3+ Fair+ Adduction 3+ Fair+ External Rotation 4 Good Internal Rotation 4+ Good+ Comments pain hip flexors w/hip flex Knee Strength Knee Manual Muscle Testing Right Flexion (S2) 4- Good- Extension (L3) 4 Good Left Flexion (S2) 4- Good- Extension (L3) 4 Good Comments pain ext -minor lat tracking B -frank neg Ankle/Foot Strength Ankle and Foot Manual Muscle Testing Right Dorsiflexion (L4) 5 Normal Plantarflexion (S1) 5 Normal Left Dorsiflexion (L4) 5 Normal Plantarflexion (S1) 5 Normal Comments 20 heel raises B PT-OP-Q Treatments Start: 04/08/24 07:38 Freq: Status: Active Protocol: Document 04/28/24 14:32 J (Rec: 04/28/24 17:05 [id number]) Therapeutic Exercises Supine Exercises Foam rolls Supine Exercise Name 1. HABD UE 2. Flexion of UE Side bilateral Equipment Used Full foam roll Reps/Minutes 1x10 Comments Cued to avoid ext of lumbar spine Standing Exercises TB walks Standing Exercise Name Lateral steps, monster walks Side bilateral Resistance lvl 3 TB Reps/Minutes 5 min Comments 1. 20 ft x3 lateral steps 2. 20 ft x2 monster walks paloff press Side bilateral Equipment Used Blue band Reps/Minutes 14 ea Comments 1. x8 B paloff press 2. x6 paloff press with rotation. Cue neutral spine squat Standing Exercise Name squat with band Resistance level 3 TB Reps/Minutes 25 Comments Cues to limit hip hinge and stick but out. Squeeze butt at top Other Exercises bird dog Side bilateral Resistance lvl 3 band around hips Reps/Minutes 12 ea Comments cues neutral spine Manual Therapy Treatment Consent Patient gave verbal consent for manual Yes treatment Soft Tissue Mobilization Patellar tendon Body Location R lateral patellar tendon Mobilization Type Cross-Friction,Sustained Pressure Intensity/Depth Superficial Body Position Supine Joint Mobilizations patella glides Direction sup/inf/med/lat Grade III Body Position Supine Reps/Duration 3 min Comments Med>Lat, sup/inf inc over time Other Other Manual Treatments STM of glute medius during active ER/IR exercises utilizing clamshells and reverse clamshells B PT-OP-T Assessment and Plan Start: 04/08/24 07:38 Freq: Status: Active Protocol: Document 04/28/24 14:32 JG (Rec: 04/28/24 17:05 JG [id number]) Physical Therapy Assessment Goals mobility Short Term Goal (STG) Pt will have improved ankle DF to at least 3 in to wall in order to improve knee mechanics and improve knee pain STG Duration 05/18 Group Home Goal (LTG) Pt will have improved ankle DF to at least 4 in to wall in order to improve knee mechanics and improve knee pain LTG Duration 07/01 posture Short Term Goal (STG) Pt will score at least 2/5 on VCT in order to show improved postural stability. STG Duration 05/18 Group Home Goal (LTG) Pt will score at least 4/5 on VCT in order to show improved postural stability. LTG Duration 06/29 strength Short Term Goal (STG) Pt will be indep w/HEP for strength, moblity and posture. STG Duration 05/18 Paint Spray Tender Goal (LTG) Pt will score at least 4+/5 on all LE and UE MMT B and at least 3/5 on EFT and LPM to show improved stability to make daily activities easier w /dec pain. LTG Duration 07/01 Progress Towards Goals Progress Towards Goals Progressing Toward Goals Assessment Summary Assessment Pt is showing progression with all exercises and needs less v/c for proper form and arching of low back. Pt came into clinic today with B hip pain and R lateral knee pain from run that occured earlier in the week. Pt was able to complete all exercises w/o inc in pain. Physical Therapy Plan Frequency and Duration Frequency of Treatment 2x/Week Duration of treatment (weeks) 12 Plan of Care Start Date 04/08/24 Plan of Care End Date 07/01/24 Next Visit Focus/Plan Next Note Type Treatment Note Next Visit Plan review exercises; cont to advance exercise progression for multi joint exercises Access IT, Glute med, R knee pain, Con't to challenge balance and stability by inc difficuty of exercises Review running giat as per request of pt so running can occur more w/o pain
--- NOTE | 2024-04-29 16:19 | PT.OTN ---
Current Diagnoses Hypermobility syndrome (04/29/24) Muscle weakness (generalized) (04/29/24) Abnormal posture (04/29/24) Physical Therapy Treatment Note PT-OP-A Visit Information Start: 04/08/24 07:38 Freq: Status: Active Protocol: Document 04/29/24 15:27 SW (Rec: 04/29/24 16:18 [id number]) Out-Patient Physical Therapy Visit Information Visit Information Visit Type Treatment Note Visit Start Time 15:25 Visit Stop Time 16:05 Visit Number 04/03 Number of FERMENTATION OPERATOR Visits 1 PT-OP-B Current Condition Start: 04/08/24 07:38 Freq: Status: Active Protocol: Document 04/08/24 15:15 [facility] (Rec: 04/08/24 16:05 [facility] [id number]) Current Condition History of Current Condition Onset Date childhood Current Complaints widespread pain (neck, wrists, knees) History of Current Condition Pt reports she has always had a bit of widespread pain. most frequnetly tendonitis issues that affects her all day long and her ability to sleep. her neck, wrist and knees are the areas she feels impact her the most. She is trying to figure out how to use her body correctly and dec pain. She said she keeps trying to get to see a stylist assistant, but has been unable d[facility]t [facility] . Her mom got diagnosed recently w/mitral valve prolapse. recently just got ADHD dx. Trying to go to school and is planning to go to [employer]. 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 Pt reports talkign to her mom, she was evaled for jeuvinile RA and it was inconclusive. She has had pain since she was small. She has had Xrays for neck and back when she was going through disability process. Cervical spine strain noted; B cervical radiculopathy, sciatic radiculopathy, cervical instability are the diagnoses that came from imaging[place]. She was only going 1x/month and one issue at a time. She has had some labwork but unsure what and that was normal so far. lightheadedness and dizziness w/supine to sit and sit to stand and strenuous exercise; GONZALEZ -mostly frontal and post ear B-doesn't know triggers- will get sensitive to light and noise and has to go lay down in dark. Jaw pain also with eating and when wake up. sometimes so tense she has to massage it. mom has told her she grinds at night; she doenst notice clenching at night and eating sometimes makes it more sore. Dentist plans to wait to see if pain persists beofre giving mouth guard. knee pain is in ant knee and inf to patella. Hx of ankle strains Treatment Goals Patient/Caregiver Goals learn how to properly engage her muscles and avoid compensations & movement patterns; Learn what is normal ROM so can learn how to avoid excessive mobility; gain strength PT-OP-C Subjective Start: 04/08/24 07:38 Freq: Status: Active Protocol: Document 04/29/24 15:27 SW (Rec: 04/29/24 16:18 [id number]) OP-PT Subjective Patient Comments Patient Comments Pt reports some soreness post last session, but no longer feels the pain from post run in bilateral glutes and knees. PT-OP-D Balance Start: 04/08/24 07:38 Freq: Status: Active Protocol: Document 04/08/24 15:15 [facility] (Rec: 04/08/24 16:05 [facility] [id number]) Balance Tests Single Limb Standing Single Limb- Right >30 sec- pt a little wobbly Single Limb- Left >30 sec- pt a little wobbly PT-OP-F Manual Assessment Start: 04/08/24 07:38 Freq: Status: Active Protocol: Document 04/08/24 15:15 [facility] (Rec: 04/08/24 16:05 [facility] [id number]) Manual Assessments Joint Mobility Assessment Joint Mobility Assessment tenderness B patellar tendon, B quads, B calves, ITB, R HS Other Manual Assessments Other Manual Assessments / Beighton scale PT-OP-G Mobility & Gait Start: 04/08/24 07:38 Freq: Status: Active Protocol: Document 04/08/24 15:15 [facility] (Rec: 04/08/24 16:05 [facility] [id number]) OP Gait Assessment Comments Gait Comments dec push off B; dec LUE arm swing PT-OP-J Posture/Palpation/Skin Start: 04/08/24 07:38 Freq: Status: Active Protocol: Document 04/08/24 15:15 [facility] (Rec: 04/08/24 16:05 [facility] [id number]) Posture Evaluation [facility] Postural Classification System [facility] Postural Classifications Posterior/Posterior Vertical Compression Test 0 Elbow Flexion Test 1 Lumbar Protective Mechanism Left AP 0 Lumbar Protective Mechanism Right AP 0 Lumbar Protective Mechanism Left PA 0 Lumbar Protective Mechanism Right PA 0 Comments Posture Comments hyperext knees, L foot toed out, inc lorodosis, rot L trunk, ant tip B scap, slight fwd head PT-OP-K Range of Motion Start: 04/08/24 07:38 Freq: Status: Active Protocol: Document 04/08/24 15:15 [facility] (Rec: 04/08/24 16:05 [facility] [id number]) Cervical Spine Range of Motion Cervical Spine Active Degrees Flexion 69 Extension 65 Rotation Left 85 Rotation Right 81 Lateral Flexion Left 52 Lateral Flexion Right 49 Comments pain contralat side w/SB and rotation; post pain w/flex/ext ; 100% rot of trunk to L; 80% R w/pain in LB Ankle and Foot Goniometric Range of Motion Ankle and Foot ROM Limitations Comments 2 in to wall B PT-OP-M Strength Start: 04/08/24 07:38 Freq: Status: Active Protocol: Document 04/08/24 15:15 [facility] (Rec: 04/08/24 16:05 [facility] [id number]) Shoulder Strength Shoulder Manual Muscle Testing Right Flexion 4+ Good+ Extension 4+ Good+ Abduction (C5) 4+ Good+ External Rotation 4 Good Internal Rotation 4- Good- Left Flexion 4+ Good+ Extension 4+ Good+ Abduction (C5) 4 Good External Rotation 4 Good Internal Rotation 4- Good- Elbow/Forearm Strength Elbow and Forearm Manual Muscle Testing Right Flexion (C6) 4 Good Extension (C7) 5 Normal Pronation 4 Good Supination 4 Good Left Flexion (C6) 4 Good Extension (C7) 4+ Good+ Pronation 4 Good Supination 4 Good Comments pain w/MMT B Wrist Strength Wrist Manual Muscle Testing Left Flexion (C7) 4+ Good+ Extension (C6) 4+ Good+ Ulnar Deviation 5 Normal Radial Deviation 5 Normal Right Flexion (C7) 4+ Good+ Extension (C6) 4+ Good+ Ulnar Deviation 5 Normal Radial Deviation 5 Normal Comments painful W/MMT Hip Strength Hip Manual Muscle Testing Right Flexion (L2) 3+ Fair+ Extension (S1) 4+ Good+ Abduction 3+ Fair+ Adduction 3+ Fair+ External Rotation 4 Good Internal Rotation 4+ Good+ Left Flexion (L2) 3+ Fair+ Extension (S1) 4+ Good+ Abduction 3+ Fair+ Adduction 3+ Fair+ External Rotation 4 Good Internal Rotation 4+ Good+ Comments pain hip flexors w/hip flex Knee Strength Knee Manual Muscle Testing Right Flexion (S2) 4- Good- Extension (L3) 4 Good Left Flexion (S2) 4- Good- Extension (L3) 4 Good Comments pain ext -minor lat tracking B -frank neg Ankle/Foot Strength Ankle and Foot Manual Muscle Testing Right Dorsiflexion (L4) 5 Normal Plantarflexion (S1) 5 Normal Left Dorsiflexion (L4) 5 Normal Plantarflexion (S1) 5 Normal Comments 20 heel raises B PT-OP-Q Treatments Start: 04/08/24 07:38 Freq: Status: Active Protocol: Document 04/29/24 15:27 (Rec: 04/29/24 16:18 [id number]) Therapeutic Exercises Supine Exercises Foam rolls Supine Exercise Name 1. HABD UE 2. Flexion of UE Side bilateral Equipment Used Full foam roll Reps/Minutes 1x10, x 10 w/ 1# weight Comments Cued to avoid ext of lumbar spine, cued to limit end range with hypermobile Prone Exercises plank Prone Exercise Name full Side bilateral Reps/Minutes [id number] Comments cues for neutral spine and neck Standing Exercises Hip Add Standing Exercise Name Hip Add Side bilateral Resistance Green TB (reporting manager resistance, (equivalent to a level 2) Equipment Used @ rail prn Reps/Minutes x15 ea paloff press Standing Exercise Name 1. palloff press 2. palloff press w/squat Side bilateral Equipment Used Blue band Reps/Minutes 15 ea Comments cued neutral spine squat Standing Exercise Name squat with band Resistance level 3 TB Reps/Minutes 3 x 10 Other Exercises bird dog Resistance level 3> level 4 band around medial femur Reps/Minutes 15 ea PT-OP-T Assessment and Plan Start: 04/08/24 07:38 Freq: Status: Active Protocol: Document 04/29/24 15:27 (Rec: 04/29/24 16:18 [id number]) Physical Therapy Assessment Goals mobility Short Term Goal (STG) Pt will have improved ankle DF to at least 3 in to wall in order to improve knee mechanics and improve knee pain STG Duration 05/18 Ground Crew Chief Goal (LTG) Pt will have improved ankle DF to at least 4 in to wall in order to improve knee mechanics and improve knee pain LTG Duration 07/01 posture Short Term Goal (STG) Pt will score at least 2/5 on VCT in order to show improved postural stability. STG Duration 05/18 Group Home Goal (LTG) Pt will score at least 4/5 on VCT in order to show improved postural stability. LTG Duration 06/29 strength Short Term Goal (STG) Pt will be indep w/HEP for strength, moblity and posture. STG Duration 05/18 Group Home Goal (LTG) Pt will score at least 4+/5 on all LE and UE MMT B and at least 3/5 on EFT and LPM to show improved stability to make daily activities easier w /dec pain. LTG Duration 07/01 Assessment Summary Assessment Pt had good carryover with form, requiring minimal verbal cues for execution. Progressed pt resistance with bird dogs, tolerated well, with good core stabilization, sent level 4 TB home for carryover with HEP. Pt tolerated session well with no reproduction of increased symptoms. Pt reports the pain that was present after running that was reported at last session is no longer present, pt felt better today. Observed pt running mechanics this session, observed hip increased adduction bilaterally, continued strengthening exercises intitated last session for hip abduction strength. Physical Therapy Plan Frequency and Duration Frequency of Treatment 2x/Week Duration of treatment (weeks) 12 Plan of Care Start Date 04/08/24 Plan of Care End Date 07/01/24 Therapeutic Interventions Therapeutic Interventions Balance Training,Gait Training ,Home Exercise Program,Joint Mobilizations,Manual Therapy, Neuromuscular Re-education, Patient/Caregiver Education, Self-Care/Home Management,Soft Tissue Mobilization,Taping, Therapeutic Activities, Therapeutic Exercises Next Visit Focus/Plan Next Note Type Treatment Note Next Visit Plan review exercises; cont to advance exercise progression for multi joint exercises Access IT, Glute med, R knee pain, Con't to challenge balance and stability by inc difficuty of exercises Review running giat as per request of pt so running can occur more w/o pain
--- NOTE | 2024-05-13 16:25 | PT.OTN ---
Current Diagnoses Hypermobility syndrome (05/13/24) Muscle weakness (generalized) (05/13/24) Abnormal posture (05/13/24) Physical Therapy Treatment Note PT-OP-A Visit Information Start: 04/08/24 07:38 Freq: Status: Active Protocol: Document 05/13/24 14:34 AB (Rec: 05/13/24 16:24 AB [id number]) Out-Patient Physical Therapy Visit Information Visit Information Visit Type Treatment Note Visit Start Time 14:35 Visit Stop Time 15:18 Visit Number 7 Number of RESTAURANT ASSISTANT MANAGER Visits 2 PT-OP-B Current Condition Start: 04/08/24 07:38 Freq: Status: Active Protocol: Document 04/08/24 15:15 [facility] (Rec: 04/08/24 16:05 [facility] [id number]) Current Condition History of Current Condition Onset Date childhood Current Complaints widespread pain (neck, wrists, knees) History of Current Condition Pt reports she has always had a bit of widespread pain. most frequnetly tendonitis issues that affects her all day long and her ability to sleep. her neck, wrist and knees are the areas she feels impact her the most. She is trying to figure out how to use her body correctly and dec pain. She said she keeps trying to get to see a activity therapist, but has been unable d/t [facility] process . Her mom got diagnosed recently w/mitral valve prolapse. recently just got ADHD dx. Trying to go to school and is planning to go to [employer]. 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 Pt reports talkign to her mom, she was evaled for jeuvinile RA and it was inconclusive. She has had pain since she was small. She has had Xrays for neck and back when she was going through disability process. Cervical spine strain noted; B cervical radiculopathy, sciatic radiculopathy, cervical instability are the diagnoses that came from imaging[place]. She was only going 1x/month and one issue at a time. She has had some labwork but unsure what and that was normal so far. lightheadedness and dizziness w/supine to sit and sit to stand and strenuous exercise; GONZALEZ -mostly frontal and post ear B-doesn't know triggers- will get sensitive to light and noise and has to go lay down in dark. Jaw pain also with eating and when wake up. sometimes so tense she has to massage it. mom has told her she grinds at night; she doenst notice clenching at night and eating sometimes makes it more sore. Dentist plans to wait to see if pain persists beofre giving mouth guard. knee pain is in ant knee and inf to patella. Hx of ankle strains Treatment Goals Patient/Caregiver Goals learn how to properly engage her muscles and avoid compensations & movement patterns; Learn what is normal ROM so can learn how to avoid excessive mobility; gain strength PT-OP-C Subjective Start: 04/08/24 07:38 Freq: Status: Active Protocol: Document 05/13/24 14:34 AB (Rec: 05/13/24 16:24 AB [id number]) OP-PT Subjective Patient Comments Patient Comments Patient reports she is the same, baseline issues are the same. Great toe 3 cm from wall with knee to wall prior to heel off floor PROM DF bilateral ankles. PT-OP-D Balance Start: 04/08/24 07:38 Freq: Status: Active Protocol: Document 04/08/24 15:15 [facility] (Rec: 04/08/24 16:05 [facility] [id number]) Balance Tests Single Limb Standing Single Limb- Right >30 sec- pt a little wobbly Single Limb- Left >30 sec- pt a little wobbly PT-OP-F Manual Assessment Start: 04/08/24 07:38 Freq: Status: Active Protocol: Document 04/08/24 15:15 [facility] (Rec: 04/08/24 16:05 [facility] [id number]) Manual Assessments Joint Mobility Assessment Joint Mobility Assessment tenderness B patellar tendon, B quads, B calves, ITB, R HS Other Manual Assessments Other Manual Assessments / Beighton scale PT-OP-G Mobility & Gait Start: 04/08/24 07:38 Freq: Status: Active Protocol: Document 04/08/24 15:15 [facility] (Rec: 04/08/24 16:05 [facility] [id number]) OP Gait Assessment Comments Gait Comments dec push off B; dec LUE arm swing PT-OP-J Posture/Palpation/Skin Start: 04/08/24 07:38 Freq: Status: Active Protocol: Document 04/08/24 15:15 [facility] (Rec: 04/08/24 16:05 [facility] [id number]) Posture Evaluation [facility] Postural Classification System [facility] Postural Classifications Posterior/Posterior Vertical Compression Test 0 Elbow Flexion Test 1 Lumbar Protective Mechanism Left AP 0 Lumbar Protective Mechanism Right AP 0 Lumbar Protective Mechanism Left PA 0 Lumbar Protective Mechanism Right PA 0 Comments Posture Comments hyperext knees, L foot toed out, inc lorodosis, rot L trunk, ant tip B scap, slight fwd head PT-OP-K Range of Motion Start: 04/08/24 07:38 Freq: Status: Active Protocol: Document 04/08/24 15:15 [facility] (Rec: 04/08/24 16:05 [facility] [id number]) Cervical Spine Range of Motion Cervical Spine Active Degrees Flexion 69 Extension 65 Rotation Left 85 Rotation Right 81 Lateral Flexion Left 52 Lateral Flexion Right 49 Comments pain contralat side w/SB and rotation; post pain w/flex/ext ; 100% rot of trunk to L; 80% R w/pain in LB Ankle and Foot Goniometric Range of Motion Ankle and Foot ROM Limitations Comments 2 in to wall B PT-OP-M Strength Start: 04/08/24 07:38 Freq: Status: Active Protocol: Document 04/08/24 15:15 [facility] (Rec: 04/08/24 16:05 [facility] [id number]) Shoulder Strength Shoulder Manual Muscle Testing Right Flexion 4+ Good+ Extension 4+ Good+ Abduction (C5) 4+ Good+ External Rotation 4 Good Internal Rotation 4- Good- Left Flexion 4+ Good+ Extension 4+ Good+ Abduction (C5) 4 Good External Rotation 4 Good Internal Rotation 4- Good- Elbow/Forearm Strength Elbow and Forearm Manual Muscle Testing Right Flexion (C6) 4 Good Extension (C7) 5 Normal Pronation 4 Good Supination 4 Good Left Flexion (C6) 4 Good Extension (C7) 4+ Good+ Pronation 4 Good Supination 4 Good Comments pain w/MMT B Wrist Strength Wrist Manual Muscle Testing Left Flexion (C7) 4+ Good+ Extension (C6) 4+ Good+ Ulnar Deviation 5 Normal Radial Deviation 5 Normal Right Flexion (C7) 4+ Good+ Extension (C6) 4+ Good+ Ulnar Deviation 5 Normal Radial Deviation 5 Normal Comments painful W/MMT Hip Strength Hip Manual Muscle Testing Right Flexion (L2) 3+ Fair+ Extension (S1) 4+ Good+ Abduction 3+ Fair+ Adduction 3+ Fair+ External Rotation 4 Good Internal Rotation 4+ Good+ Left Flexion (L2) 3+ Fair+ Extension (S1) 4+ Good+ Abduction 3+ Fair+ Adduction 3+ Fair+ External Rotation 4 Good Internal Rotation 4+ Good+ Comments pain hip flexors w/hip flex Knee Strength Knee Manual Muscle Testing Right Flexion (S2) 4- Good- Extension (L3) 4 Good Left Flexion (S2) 4- Good- Extension (L3) 4 Good Comments pain ext -minor lat tracking B -frank neg Ankle/Foot Strength Ankle and Foot Manual Muscle Testing Right Dorsiflexion (L4) 5 Normal Plantarflexion (S1) 5 Normal Left Dorsiflexion (L4) 5 Normal Plantarflexion (S1) 5 Normal Comments 20 heel raises B PT-OP-Q Treatments Start: 04/08/24 07:38 Freq: Status: Active Protocol: Document 05/13/24 14:34 AB (Rec: 05/13/24 16:24 AB [id number]) Cardio Equipment Treadmill Speed 2 to 5.5 JOIE Incline 0 Other 5.5 min & verbal cues to slightly flex trunk and slightly widen JOIE Therapeutic Exercises Sidelying Exercises open book Sidelying Exercise Name open book Reps/Minutes X3 for 3 breaths Sitting Exercises seated hip abduction Sitting Exercise Name HEP Side bilateral Resistance level 4 blue band Reps/Minutes one minute Standing Exercises bilateral heel raise Standing Exercise Name on step Reps/Minutes X10 calf stretches Standing Exercise Name gastroc & soleus Side bilateral Reps/Minutes 2X 60 seconds each stretch Comments verbal and visual cues Manual Therapy Treatment Consent Patient gave verbal consent for manual Yes treatment Soft Tissue Mobilization calf muscles Body Location bilateral calf muscles Mobilization Type Cross-Friction,Rolling, Sustained Pressure Intensity/Depth Moderate Comments Some brusing on R calf noted prior to manual. Avoided area of treatment, Pt made aware, Also STM for bilateral X2 X 10 heel raises on step Joint Mobilizations AP Tib Joint Tib Fib Direction AP Grade IV Body Position Standing Reps/Duration 3x10 ea ankle/foot Joint bilateral talocrural MWC Direction AP Grade IV Body Position Standing Reps/Duration 2x15 each LE Comments Mulligan with movement TC mobilization Taping bilateral knees Treatment Focus unload fat pad Type of Tape Kinesio Tape Skin Inspection WNL, healed scab/scar more than scap right knee Comments V to unload fat pad PT-OP-T Assessment and Plan Start: 04/08/24 07:38 Freq: Status: Active Protocol: Document 05/13/24 14:34 AB (Rec: 05/13/24 16:24 AB [id number]) Physical Therapy Assessment Goals mobility Short Term Goal (STG) Pt will have improved ankle DF to at least 3 in to wall in order to improve knee mechanics and improve knee pain STG Duration 05/18 Semiconductor Wafers Etch Operator Goal (LTG) Pt will have improved ankle DF to at least 4 in to wall in order to improve knee mechanics and improve knee pain LTG Duration 07/01 posture Short Term Goal (STG) Pt will score at least 2/5 on VCT in order to show improved postural stability. STG Duration 05/18 Fdc Goal (LTG) Pt will score at least 4/5 on VCT in order to show improved postural stability. LTG Duration 06/29 strength Short Term Goal (STG) Pt will be indep w/HEP for strength, moblity and posture. STG Duration 05/18 Semiconductor Wafers Etch Operator Goal (LTG) Pt will score at least 4+/5 on all LE and UE MMT B and at least 3/5 on EFT and LPM to show improved stability to make daily activities easier w /dec pain. LTG Duration 07/01 Physical Therapy Plan Frequency and Duration Frequency of Treatment 2x/Week Duration of treatment (weeks) 12 Plan of Care Start Date 04/08/24 Plan of Care End Date 07/01/24 Next Visit Focus/Plan Next Note Type Treatment Note Next Visit Plan review exercises; cont to advance exercise progression for multi joint exercises Access IT, Glute med, R knee pain, Con't to challenge balance and stability by inc difficuty of exercises Assess patient's iveth to KT tape and change in running to increased trunk flexion at hip and wider JOIE, Review running giat as per request of pt so running can occur more w/o pain
--- NOTE | 2024-05-17 15:54 | PT.OTN ---
Current Diagnoses Hypermobility syndrome (05/17/24) Muscle weakness (generalized) (05/17/24) Abnormal posture (05/17/24) Physical Therapy Treatment Note PT-OP-A Visit Information Start: 04/08/24 07:38 Freq: Status: Active Protocol: Document 05/17/24 13:52 AB (Rec: 05/17/24 14:32 AB [id number]) Out-Patient Physical Therapy Visit Information Visit Information Visit Type Treatment Note Visit Note Visit [email or web address] Access Code: [email or web address] Visit Start Time 13:49 Visit Stop Time 14:32 Visit Number 06/03 Number of MID LEVEL BUSINESS ANALYST Visits 3 PT-OP-B Current Condition Start: 04/08/24 07:38 Freq: Status: Active Protocol: Document 04/08/24 15:15 [facility] (Rec: 04/08/24 16:05 [facility] [id number]) Current Condition History of Current Condition Onset Date childhood Current Complaints widespread pain (neck, wrists, knees) History of Current Condition Pt reports she has always had a bit of widespread pain. most frequnetly tendonitis issues that affects her all day long and her ability to sleep. her neck, wrist and knees are the areas she feels impact her the most. She is trying to figure out how to use her body correctly and dec pain. She said she keeps trying to get to see a occupational therapist aide, but has been unable d[facility]t [facility] . Her mom got diagnosed recently w/mitral valve prolapse. recently just got ADHD dx. Trying to go to school and is planning to go to [employer]. 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 Pt reports talkign to her mom, she was evaled for jeuvinile RA and it was inconclusive. She has had pain since she was small. She has had Xrays for neck and back when she was going through disability process. Cervical spine strain noted; B cervical radiculopathy, sciatic radiculopathy, cervical instability are the diagnoses that came from imaging[place]. She was only going 1x/month and one issue at a time. She has had some labwork but unsure what and that was normal so far. lightheadedness and dizziness w/supine to sit and sit to stand and strenuous exercise; GONZALEZ -mostly frontal and post ear B-doesn't know triggers- will get sensitive to light and noise and has to go lay down in dark. Jaw pain also with eating and when wake up. sometimes so tense she has to massage it. mom has told her she grinds at night; she doenst notice clenching at night and eating sometimes makes it more sore. Dentist plans to wait to see if pain persists beofre giving mouth guard. knee pain is in ant knee and inf to patella. Hx of ankle strains Treatment Goals Patient/Caregiver Goals learn how to properly engage her muscles and avoid compensations & movement patterns; Learn what is normal ROM so can learn how to avoid excessive mobility; gain strength PT-OP-C Subjective Start: 04/08/24 07:38 Freq: Status: Active Protocol: Document 05/17/24 13:52 AB (Rec: 05/17/24 14:32 AB [id number]) OP-PT Subjective Patient Comments Patient Comments Patient reports tape helped, but took off some skin so doesn't want to try it again. Patient reports partner checked her running posture and she was not too upright, and she is working on CHOBOLABS further apart. PT-OP-D Balance Start: 04/08/24 07:38 Freq: Status: Active Protocol: Document 04/08/24 15:15 [facility] (Rec: 04/08/24 16:05 [facility] [id number]) Balance Tests Single Limb Standing Single Limb- Right >30 sec- pt a little wobbly Single Limb- Left >30 sec- pt a little wobbly PT-OP-F Manual Assessment Start: 04/08/24 07:38 Freq: Status: Active Protocol: Document 04/08/24 15:15 [facility] (Rec: 04/08/24 16:05 [facility] [id number]) Manual Assessments Joint Mobility Assessment Joint Mobility Assessment tenderness B patellar tendon, B quads, B calves, ITB, R HS Other Manual Assessments Other Manual Assessments / Beighton scale PT-OP-G Mobility & Gait Start: 04/08/24 07:38 Freq: Status: Active Protocol: Document 04/08/24 15:15 [facility] (Rec: 04/08/24 16:05 [facility] [id number]) OP Gait Assessment Comments Gait Comments dec push off B; dec LUE arm swing PT-OP-J Posture/Palpation/Skin Start: 04/08/24 07:38 Freq: Status: Active Protocol: Document 04/08/24 15:15 [facility] (Rec: 04/08/24 16:05 [facility] [id number]) Posture Evaluation [facility] Postural Classification System Gisele Postural Classifications Posterior/Posterior Vertical Compression Test 0 Elbow Flexion Test 1 Lumbar Protective Mechanism Left AP 0 Lumbar Protective Mechanism Right AP 0 Lumbar Protective Mechanism Left PA 0 Lumbar Protective Mechanism Right PA 0 Comments Posture Comments hyperext knees, L foot toed out, inc lorodosis, rot L trunk, ant tip B scap, slight fwd head PT-OP-K Range of Motion Start: 04/08/24 07:38 Freq: Status: Active Protocol: Document 04/08/24 15:15 [facility] (Rec: 04/08/24 16:05 [facility] [id number]) Cervical Spine Range of Motion Cervical Spine Active Degrees Flexion 69 Extension 65 Rotation Left 85 Rotation Right 81 Lateral Flexion Left 52 Lateral Flexion Right 49 Comments pain contralat side w/SB and rotation; post pain w/flex/ext ; 100% rot of trunk to L; 80% R w/pain in LB Ankle and Foot Goniometric Range of Motion Ankle and Foot ROM Limitations Comments 2 in to wall B PT-OP-M Strength Start: 04/08/24 07:38 Freq: Status: Active Protocol: Document 04/08/24 15:15 [facility] (Rec: 04/08/24 16:05 [facility] [id number]) Shoulder Strength Shoulder Manual Muscle Testing Right Flexion 4+ Good+ Extension 4+ Good+ Abduction (C5) 4+ Good+ External Rotation 4 Good Internal Rotation 4- Good- Left Flexion 4+ Good+ Extension 4+ Good+ Abduction (C5) 4 Good External Rotation 4 Good Internal Rotation 4- Good- Elbow/Forearm Strength Elbow and Forearm Manual Muscle Testing Right Flexion (C6) 4 Good Extension (C7) 5 Normal Pronation 4 Good Supination 4 Good Left Flexion (C6) 4 Good Extension (C7) 4+ Good+ Pronation 4 Good Supination 4 Good Comments pain w/MMT B Wrist Strength Wrist Manual Muscle Testing Left Flexion (C7) 4+ Good+ Extension (C6) 4+ Good+ Ulnar Deviation 5 Normal Radial Deviation 5 Normal Right Flexion (C7) 4+ Good+ Extension (C6) 4+ Good+ Ulnar Deviation 5 Normal Radial Deviation 5 Normal Comments painful W/MMT Hip Strength Hip Manual Muscle Testing Right Flexion (L2) 3+ Fair+ Extension (S1) 4+ Good+ Abduction 3+ Fair+ Adduction 3+ Fair+ External Rotation 4 Good Internal Rotation 4+ Good+ Left Flexion (L2) 3+ Fair+ Extension (S1) 4+ Good+ Abduction 3+ Fair+ Adduction 3+ Fair+ External Rotation 4 Good Internal Rotation 4+ Good+ Comments pain hip flexors w/hip flex Knee Strength Knee Manual Muscle Testing Right Flexion (S2) 4- Good- Extension (L3) 4 Good Left Flexion (S2) 4- Good- Extension (L3) 4 Good Comments pain ext -minor lat tracking B -frank neg Ankle/Foot Strength Ankle and Foot Manual Muscle Testing Right Dorsiflexion (L4) 5 Normal Plantarflexion (S1) 5 Normal Left Dorsiflexion (L4) 5 Normal Plantarflexion (S1) 5 Normal Comments 20 heel raises B PT-OP-Q Treatments Start: 04/08/24 07:38 Freq: Status: Active Protocol: Document 05/17/24 13:52 AB (Rec: 05/17/24 14:32 AB [id number]) Therapeutic Exercises Standing Exercises Glute med isometric Side bilateral Reps/Minutes one minute hold X 1 Comments verbal and visual cues bilateral heel raise Standing Exercise Name on step Reps/Minutes X10 X2 Comments verbal cues to lower heels slowly to floor TB walks Standing Exercise Name Lateral steps, monster walks Side bilateral Resistance lvl 5 TB Reps/Minutes 10 feet left and right X 2 calf stretches Standing Exercise Name gastroc & soleus Side bilateral Reps/Minutes 2X 60 seconds each stretch Comments verbal and visual cues squat Standing Exercise Name squat with band Resistance level 5 TB Reps/Minutes 2 x 10 Manual Therapy Treatment Soft Tissue Mobilization calf muscles Body Location bilateral calf muscles Mobilization Type Cross-Friction,Rolling, Sustained Pressure Intensity/Depth Moderate Comments prior to stretch Joint Mobilizations AP Tib Joint Tib Fib Direction AP Grade IV Body Position Standing Reps/Duration 3x10 ea ankle/foot Joint bilateral talocrural MWC Direction AP Grade IV Body Position Standing Reps/Duration 2x15 each LE Comments Mulligan with movement TC mobilization Self-Care/Home Management Treatment Education Other Education Patient ed trial of smaller steps when running. PT-OP-T Assessment and Plan Start: 04/08/24 07:38 Freq: Status: Active Protocol: Document 05/17/24 13:52 AB (Rec: 07/29/24 14:32 AB [id number]) Physical Therapy Assessment Assessment Summary Assessment Decreased femoral IR during ambulation post glut med isometric. Dynamic valgus with SLS left and right LE persists. Physical Therapy Plan Frequency and Duration Frequency of Treatment 2x/Week Duration of treatment (weeks) 12 Plan of Care Start Date 04/08/24 Plan of Care End Date 07/01/24 Next Visit Focus/Plan Next Note Type Treatment Note Next Visit Plan review exercises; cont to advance exercise progression for multi joint exercises Access IT, Glute med, R knee pain, Con't to challenge balance and stability by inc difficuty of exercises Assess patient's iveth to KT tape and change in running to increased trunk flexion at hip and wider JOIE, Review running gait as per request of pt so running can occur more w/o pain, possibly add single leg squat with level one band, initiate with UE use
--- NOTE | 2024-05-20 12:55 | PT.OTN ---
Current Diagnoses Hypermobility syndrome (05/20/24) Muscle weakness (generalized) (05/20/24) Abnormal posture (05/20/24) Physical Therapy Treatment Note PT-OP-A Visit Information Start: 04/08/24 07:38 Freq: Status: Active Protocol: Document 05/20/24 08:07 AB (Rec: 05/20/24 09:46 AB [id number]) Out-Patient Physical Therapy Visit Information Visit Information Visit Type Treatment Note Visit Note Visit [email or web address] Access Code: [email or web address] Visit Start Time 09:03 Visit Stop Time 09:45 Visit Number 07/04 Number of HARNESS PREPARER Visits 4 PT-OP-B Current Condition Start: 04/08/24 07:38 Freq: Status: Active Protocol: Document 04/08/24 15:15 [facility] (Rec: 04/08/24 16:05 [facility] [id number]) Current Condition History of Current Condition Onset Date childhood Current Complaints widespread pain (neck, wrists, knees) History of Current Condition Pt reports she has always had a bit of widespread pain. most frequnetly tendonitis issues that affects her all day long and her ability to sleep. her neck, wrist and knees are the areas she feels impact her the most. She is trying to figure out how to use her body correctly and dec pain. She said she keeps trying to get to see a tinner automatic, but has been unable d[facility]t [facility] process . Her mom got diagnosed recently w/mitral valve prolapse. recently just got ADHD dx. Trying to go to school and is planning to go to [employer]. 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 Pt reports talkign to her mom, she was evaled for jeuvinile RA and it was inconclusive. She has had pain since she was small. She has had Xrays for neck and back when she was going through disability process. Cervical spine strain noted; B cervical radiculopathy, sciatic radiculopathy, cervical instability are the diagnoses that came from imaging. [place]. She was only going 1x/month and one issue at a time. She has had some labwork but unsure what and that was normal so far. lightheadedness and dizziness w/supine to sit and sit to stand and strenuous exercise; GONZALEZ -mostly frontal and post ear B-doesn't know triggers- will get sensitive to light and noise and has to go lay down in dark. Jaw pain also with eating and when wake up. sometimes so tense she has to massage it. mom has told her she grinds at night; she doenst notice clenching at night and eating sometimes makes it more sore. Dentist plans to wait to see if pain persists beofre giving mouth guard. knee pain is in ant knee and inf to patella. Hx of ankle strains Treatment Goals Patient/Caregiver Goals learn how to properly engage her muscles and avoid compensations & movement patterns; Learn what is normal ROM so can learn how to avoid excessive mobility; gain strength PT-OP-C Subjective Start: 04/08/24 07:38 Freq: Status: Active Protocol: Document 05/20/24 08:07 AB (Rec: 05/20/24 09:46 AB [id number]) OP-PT Subjective Patient Comments Patient Comments Patient reports having increased right knee pain due to increased standing. PT-OP-D Balance Start: 04/08/24 07:38 Freq: Status: Active Protocol: Document 04/08/24 15:15 [facility] (Rec: 04/08/24 16:05 [facility] [id number]) Balance Tests Single Limb Standing Single Limb- Right >30 sec- pt a little wobbly Single Limb- Left >30 sec- pt a little wobbly PT-OP-F Manual Assessment Start: 04/08/24 07:38 Freq: Status: Active Protocol: Document 04/08/24 15:15 [facility] (Rec: 04/08/24 16:05 [facility] [id number]) Manual Assessments Joint Mobility Assessment Joint Mobility Assessment tenderness B patellar tendon, B quads, B calves, ITB, R HS Other Manual Assessments Other Manual Assessments / Beighton scale PT-OP-G Mobility & Gait Start: 04/08/24 07:38 Freq: Status: Active Protocol: Document 04/08/24 15:15 [facility] (Rec: 04/08/24 16:05 [facility] [id number]) OP Gait Assessment Comments Gait Comments dec push off B; dec LUE arm swing PT-OP-J Posture/Palpation/Skin Start: 04/08/24 07:38 Freq: Status: Active Protocol: Document 04/08/24 15:15 [facility] (Rec: 04/08/24 16:05 [facility] [id number]) Posture Evaluation [facility] Postural Classification System [facility] Postural Classifications Posterior/Posterior Vertical Compression Test 0 Elbow Flexion Test 1 Lumbar Protective Mechanism Left AP 0 Lumbar Protective Mechanism Right AP 0 Lumbar Protective Mechanism Left PA 0 Lumbar Protective Mechanism Right PA 0 Comments Posture Comments hyperext knees, L foot toed out, inc lorodosis, rot L trunk, ant tip B scap, slight fwd head PT-OP-K Range of Motion Start: 04/08/24 07:38 Freq: Status: Active Protocol: Document 04/08/24 15:15 [facility] (Rec: 04/08/24 16:05 [facility] [id number]) Cervical Spine Range of Motion Cervical Spine Active Degrees Flexion 69 Extension 65 Rotation Left 85 Rotation Right 81 Lateral Flexion Left 52 Lateral Flexion Right 49 Comments pain contralat side w/SB and rotation; post pain w/flex/ext ; 100% rot of trunk to L; 80% R w/pain in LB Ankle and Foot Goniometric Range of Motion Ankle and Foot ROM Limitations Comments 2 in to wall B PT-OP-M Strength Start: 04/08/24 07:38 Freq: Status: Active Protocol: Document 04/08/24 15:15 [facility] (Rec: 04/08/24 16:05 [facility] [id number]) Shoulder Strength Shoulder Manual Muscle Testing Right Flexion 4+ Good+ Extension 4+ Good+ Abduction (C5) 4+ Good+ External Rotation 4 Good Internal Rotation 4- Good- Left Flexion 4+ Good+ Extension 4+ Good+ Abduction (C5) 4 Good External Rotation 4 Good Internal Rotation 4- Good- Elbow/Forearm Strength Elbow and Forearm Manual Muscle Testing Right Flexion (C6) 4 Good Extension (C7) 5 Normal Pronation 4 Good Supination 4 Good Left Flexion (C6) 4 Good Extension (C7) 4+ Good+ Pronation 4 Good Supination 4 Good Comments pain w/MMT B Wrist Strength Wrist Manual Muscle Testing Left Flexion (C7) 4+ Good+ Extension (C6) 4+ Good+ Ulnar Deviation 5 Normal Radial Deviation 5 Normal Right Flexion (C7) 4+ Good+ Extension (C6) 4+ Good+ Ulnar Deviation 5 Normal Radial Deviation 5 Normal Comments painful W/MMT Hip Strength Hip Manual Muscle Testing Right Flexion (L2) 3+ Fair+ Extension (S1) 4+ Good+ Abduction 3+ Fair+ Adduction 3+ Fair+ External Rotation 4 Good Internal Rotation 4+ Good+ Left Flexion (L2) 3+ Fair+ Extension (S1) 4+ Good+ Abduction 3+ Fair+ Adduction 3+ Fair+ External Rotation 4 Good Internal Rotation 4+ Good+ Comments pain hip flexors w/hip flex Knee Strength Knee Manual Muscle Testing Right Flexion (S2) 4- Good- Extension (L3) 4 Good Left Flexion (S2) 4- Good- Extension (L3) 4 Good Comments pain ext -minor lat tracking B -frank neg Ankle/Foot Strength Ankle and Foot Manual Muscle Testing Right Dorsiflexion (L4) 5 Normal Plantarflexion (S1) 5 Normal Left Dorsiflexion (L4) 5 Normal Plantarflexion (S1) 5 Normal Comments 20 heel raises B PT-OP-Q Treatments Start: 04/08/24 07:38 Freq: Status: Active Protocol: Document 05/20/24 08:07 AB (Rec: 05/20/24 09:46 AB [id number]) Therapeutic Exercises Standing Exercises bilateral heel raise Standing Exercise Name on step Reps/Minutes X10 X2 Comments verbal cues to lower heels slowly to floor TB walks Standing Exercise Name Lateral steps, monster walks Side bilateral Reps/Minutes 15 feet left and right X 3 lateral steps 15 feet X 4 Monster walks calf stretches Standing Exercise Name gastroc & soleus Side bilateral Reps/Minutes 2X 60 seconds each stretch Comments verbal and visual cues squat Standing Exercise Name squat with band Resistance level 5 TB Reps/Minutes 3 x 10 Manual Therapy Treatment Soft Tissue Mobilization calf muscles Body Location bilateral calf muscles Mobilization Type Cross-Friction,Rolling, Sustained Pressure Intensity/Depth Moderate Comments prior to stretch Joint Mobilizations ankle/foot Joint bilateral talocrural MWC Direction AP Grade IV Body Position Standing Reps/Duration 2x15 each LE Comments Mulligan with movement TC mobilization PT-OP-T Assessment and Plan Start: 04/08/24 07:38 Freq: Status: Active Protocol: Document 05/20/24 08:07 AB (Rec: 05/20/24 09:46 AB [id number]) Physical Therapy Assessment Goals mobility Short Term Goal (STG) Pt will have improved ankle DF to at least 3 in to wall in order to improve knee mechanics and improve knee pain STG Duration 05/18 Chart Clerk Goal (LTG) Pt will have improved ankle DF to at least 4 in to wall in order to improve knee mechanics and improve knee pain LTG Duration 07/01 posture Short Term Goal (STG) Pt will score at least 2/5 on VCT in order to show improved postural stability. STG Duration 05/18 Chart Clerk Goal (LTG) Pt will score at least 4/5 on VCT in order to show improved postural stability. LTG Duration 06/29 strength Short Term Goal (STG) Pt will be indep w/HEP for strength, moblity and posture. STG Duration 05/18 Chart Clerk Goal (LTG) Pt will score at least 4+/5 on all LE and UE MMT B and at least 3/5 on EFT and LPM to show improved stability to make daily activities easier w /dec pain. LTG Duration 07/01 Assessment Summary Assessment Decreased dynamic valgus left and right LE end of session with single leg squat, persists at deeper level squat . Patient reports right knee paini s less end of session. Physical Therapy Plan Frequency and Duration Frequency of Treatment 2x/Week Duration of treatment (weeks) 12 Plan of Care Start Date 04/08/24 Plan of Care End Date 07/01/24 Next Visit Focus/Plan Next Note Type Progress Note Next Visit Plan Possibly taping with cover roll and Leukotape review exercises; cont to advance exercise progression for multi joint exercises Access IT, Glute med, R knee pain, Con't to challenge balance and stability by inc difficuty of exercises Assess patient's iveth to KT tape and change in running to increased trunk flexion at hip and wider JOIE, Review running gait as per request of pt so running can occur more w/o pain, assess iveth to single leg squat with level one band, initiate with UE use
--- NOTE | 2024-05-25 10:37 | PT.OTN ---
Current Diagnoses Hypermobility syndrome (05/25/24) Muscle weakness (generalized) (05/25/24) Abnormal posture (05/25/24) Physical Therapy Treatment Note PT-OP-A Visit Information Start: 04/08/24 07:38 Freq: Status: Active Protocol: Document 05/25/24 09:53 [facility] (Rec: 05/25/24 10:37 [facility] [id number]) Out-Patient Physical Therapy Visit Information Visit Information Visit Type Progress Note Visit Note Visit [email or web address] [place] Access Code: [email or web address] Visit Start Time 09:53 Visit Stop Time 10:31 Visit Number 08/03 Number of ASSISTANT SITE MANAGER Visits 0 PT-OP-B Current Condition Start: 04/08/24 07:38 Freq: Status: Active Protocol: Document 04/08/24 15:15 [facility] (Rec: 04/08/24 16:05 [facility] [id number]) Current Condition History of Current Condition Onset Date childhood Current Complaints widespread pain (neck, wrists, knees) History of Current Condition Pt reports she has always had a bit of widespread pain. most frequnetly tendonitis issues that affects her all day long and her ability to sleep. her neck, wrist and knees are the areas she feels impact her the most. She is trying to figure out how to use her body correctly and dec pain. She said she keeps trying to get to see a silvering department supervisor, but has been unable d[facility]t [facility] . Her mom got diagnosed recently w/mitral valve prolapse. recently just got ADHD dx. Trying to go to school and is planning to go to [place]. 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 Pt reports talkign to her mom, she was evaled for jeuvinile RA and it was inconclusive. She has had pain since she was small. She has had Xrays for neck and back when she was going through disability process. Cervical spine strain noted; B cervical radiculopathy, sciatic radiculopathy, cervical instability are the diagnoses that came from imaging[place]. She was only going 1x/month and one issue at a time. She has had some labwork but unsure what and that was normal so far. lightheadedness and dizziness w/supine to sit and sit to stand and strenuous exercise; GONZALEZ -mostly frontal and post ear B-doesn't know triggers- will get sensitive to light and noise and has to go lay down in dark. Jaw pain also with eating and when wake up. sometimes so tense she has to massage it. mom has told her she grinds at night; she doenst notice clenching at night and eating sometimes makes it more sore. Dentist plans to wait to see if pain persists beofre giving mouth guard. knee pain is in ant knee and inf to patella. Hx of ankle strains Treatment Goals Patient/Caregiver Goals learn how to properly engage her muscles and avoid compensations & movement patterns; Learn what is normal ROM so can learn how to avoid excessive mobility; gain strength PT-OP-C Subjective Start: 04/08/24 07:38 Freq: Status: Active Protocol: Document 05/25/24 09:53 [facility] (Rec: 05/25/24 10:37 [facility] [id number]) OP-PT Subjective Patient Comments Patient Comments Feels like she has better ways to manage pain. PT-OP-D Balance Start: 04/08/24 07:38 Freq: Status: Active Protocol: Document 04/08/24 15:15 [facility] (Rec: 04/08/24 16:05 [facility] [id number]) Balance Tests Single Limb Standing Single Limb- Right >30 sec- pt a little wobbly Single Limb- Left >30 sec- pt a little wobbly PT-OP-F Manual Assessment Start: 04/08/24 07:38 Freq: Status: Active Protocol: Document 04/08/24 15:15 [facility] (Rec: 04/08/24 16:05 [facility] [id number]) Manual Assessments Joint Mobility Assessment Joint Mobility Assessment tenderness B patellar tendon, B quads, B calves, ITB, R HS Other Manual Assessments Other Manual Assessments 06/28 Beighton scale PT-OP-G Mobility & Gait Start: 04/08/24 07:38 Freq: Status: Active Protocol: Document 04/08/24 15:15 [facility] (Rec: 04/08/24 16:05 [facility] [id number]) OP Gait Assessment Comments Gait Comments dec push off B; dec LUE arm swing PT-OP-J Posture/Palpation/Skin Start: 04/08/24 07:38 Freq: Status: Active Protocol: Document 05/25/24 09:53 [facility] (Rec: 05/25/24 10:37 [facility] [id number]) Posture Evaluation Gisele Postural Classification System Vertical Compression Test 2 Elbow Flexion Test 2 Lumbar Protective Mechanism Left AP 1 Lumbar Protective Mechanism Right AP 2 Lumbar Protective Mechanism Left PA 2 Lumbar Protective Mechanism Right PA 2 PT-OP-K Range of Motion Start: 04/08/24 07:38 Freq: Status: Active Protocol: Document 05/25/24 09:53 [facility] (Rec: 05/25/24 10:37 [facility] [id number]) Ankle and Foot Goniometric Range of Motion Ankle and Foot ROM Limitations Comments 2.75 in to wall L; 2.5 in to wall PT-OP-M Strength Start: 04/08/24 07:38 Freq: Status: Active Protocol: Document 05/25/24 09:53 [facility] (Rec: 05/25/24 10:37 [facility] [id number]) Shoulder Strength Shoulder Manual Muscle Testing Right Flexion 4+ Good+ Extension 5 Normal Abduction (C5) 4+ Good+ External Rotation 4+ Good+ Internal Rotation 4+ Good+ Left Flexion 4+ Good+ Extension 5 Normal Abduction (C5) 4+ Good+ External Rotation 5 Normal Internal Rotation 4+ Good+ Elbow/Forearm Strength Elbow and Forearm Manual Muscle Testing Right Flexion (C6) 5 Normal Extension (C7) 5 Normal Pronation 4 Good Supination 4+ Good+ Left Flexion (C6) 5 Normal Extension (C7) 5 Normal Pronation 4 Good Supination 4+ Good+ Wrist Strength Wrist Manual Muscle Testing Left Flexion (C7) 5 Normal Extension (C6) 5 Normal Ulnar Deviation 5 Normal Radial Deviation 5 Normal Right Flexion (C7) 5 Normal Extension (C6) 5 Normal Ulnar Deviation 5 Normal Radial Deviation 5 Normal Hip Strength Hip Manual Muscle Testing Right Flexion (L2) 4- Good- Extension (S1) 5 Normal Abduction 5 Normal Adduction 5 Normal External Rotation 4 Good Internal Rotation 4+ Good+ Left Flexion (L2) 4- Good- Extension (S1) 5 Normal Abduction 5 Normal Adduction 5 Normal External Rotation 3+ Fair+ Internal Rotation 4+ Good+ Comments pain in knee w/ER Knee Strength Knee Manual Muscle Testing Right Flexion (S2) 4 Good Extension (L3) 5 Normal Left Flexion (S2) 4 Good Extension (L3) 5 Normal Ankle/Foot Strength Ankle and Foot Manual Muscle Testing Right Dorsiflexion (L4) 5 Normal Plantarflexion (S1) 5 Normal Left Dorsiflexion (L4) 5 Normal Plantarflexion (S1) 5 Normal Comments 20 heel raises B PT-OP-Q Treatments Start: 04/08/24 07:38 Freq: Status: Active Protocol: Document 05/25/24 09:53 [facility] (Rec: 05/25/24 10:37 [facility] [id number]) Therapeutic Exercises Sidelying Exercises sideplank Sidelying Exercise Name 1. holds 2. w/clamshell Side bilateral Reps/Minutes 1. 3x10 sec ea 2. 2x10 Standing Exercises squat Standing Exercise Name L squat with band Resistance level 2 TB Reps/Minutes 2x5 Comments cues for big toe down and knee press into band Other Exercises isometrics Other Exercise Name MMT UE/LE, LPM, EFT, VCT Side bilateral Manual Therapy Treatment Consent Patient gave verbal consent for manual Yes treatment Soft Tissue Mobilization calf muscles Body Location bilateral calf muscles Mobilization Type Cross-Friction,Rolling, Sustained Pressure Intensity/Depth Moderate Joint Mobilizations AP Tib Joint Tib Fib Direction AP Grade IV Body Position Prone PT-OP-T Assessment and Plan Start: 04/08/24 07:38 Freq: Status: Active Protocol: Document 05/25/24 09:53 [facility] (Rec: 05/25/24 10:37 [facility] [id number]) Physical Therapy Assessment Goals mobility Short Term Goal (STG) Pt will have improved ankle DF to at least 3 in to wall in order to improve knee mechanics and improve knee pain 05/25 improved STG Duration 05/18 Skilled Nursing Goal (LTG) Pt will have improved ankle DF to at least 4 in to wall in order to improve knee mechanics and improve knee pain LTG Duration 07/01 posture Short Term Goal (STG) Pt will score at least 2/5 on VCT in order to show improved postural stability. STG Duration achieved 05/25 Metal Buggy Operator Goal (LTG) Pt will score at least 4/5 on VCT in order to show improved postural stability. LTG Duration 06/29 strength Short Term Goal (STG) Pt will be indep w/HEP for strength, moblity and posture. STG Duration achieved advancinga s able Metal Buggy Operator Goal (LTG) Pt will score at least 4+/5 on all LE and UE MMT B and at least 3/5 on EFT and LPM to show improved stability to make daily activities easier w /dec pain. 8/6-improved LTG Duration 07/01 Assessment Summary Assessment Pt is making good progress w/ PT and is showing improved strength and stability,but still demonstrates weak core stability and pain w/her typical activties w/ dysfunctional movement patterns. Cont PT to work on this. Physical Therapy Plan Frequency and Duration Frequency of Treatment 2x/Week Duration of treatment (weeks) 12 Plan of Care Start Date 04/08/24 Plan of Care End Date 07/01/24 Therapeutic Interventions Therapeutic Interventions Balance Training,Gait Training ,Home Exercise Program,Joint Mobilizations,Manual Therapy, Neuromuscular Re-education, Patient/Caregiver Education, Self-Care/Home Management,Soft Tissue Mobilization,Taping, Therapeutic Activities, Therapeutic Exercises Next Visit Focus/Plan Next Note Type Treatment Note Next Visit Plan cont to advance exercise progression for multi joint exercises Access IT, Glute med, R knee pain, Con't to challenge balance and stability by inc difficuty of exercises Assess patient's iveth to KT tape and change in running to increased trunk flexion at hip and wider JOIE, Review running gait as per request of pt so running can occur more w/o pain, assess iveth to single leg squat with level one band, initiate with UE use
--- NOTE | 2024-05-27 12:54 | PT.OTN ---
Current Diagnoses Hypermobility syndrome (05/27/24) Muscle weakness (generalized) (05/27/24) Abnormal posture (05/27/24) Physical Therapy Treatment Note PT-OP-A Visit Information Start: 04/08/24 07:38 Freq: Status: Active Protocol: Document 05/27/24 08:04 [facility] (Rec: 05/27/24 12:54 [facility] [id number]) Out-Patient Physical Therapy Visit Information Visit Information Visit Type Treatment Note Visit Note Visit [email or web address] Access Code: [email or web address] Visit Start Time 10:34 Visit Stop Time 11:15 Visit Number 09/03 Number of INDUSTRIAL SEWER Visits 1 PT-OP-B Current Condition Start: 04/08/24 07:38 Freq: Status: Active Protocol: Document 04/08/24 15:15 [facility] (Rec: 04/08/24 16:05 [facility] [id number]) Current Condition History of Current Condition Onset Date childhood Current Complaints widespread pain (neck, wrists, knees) History of Current Condition Pt reports she has always had a bit of widespread pain. most frequnetly tendonitis issues that affects her all day long and her ability to sleep. her neck, wrist and knees are the areas she feels impact her the most. She is trying to figure out how to use her body correctly and dec pain. She said she keeps trying to get to see a pool finisher, but has been unable d[facility]t [facility] process . Her mom got diagnosed recently w/mitral valve prolapse. recently just got ADHD dx. Trying to go to school and is planning to go to [employer]. 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 Pt reports talkign to her mom, she was evaled for jeuvinile RA and it was inconclusive. She has had pain since she was small. She has had Xrays for neck and back when she was going through disability process. Cervical spine strain noted; B cervical radiculopathy, sciatic radiculopathy, cervical instability are the diagnoses that came from imaging[place]. She was only going 1x/month and one issue at a time. She has had some labwork but unsure what and that was normal so far. lightheadedness and dizziness w/supine to sit and sit to stand and strenuous exercise; GONZALEZ -mostly frontal and post ear B-doesn't know triggers- will get sensitive to light and noise and has to go lay down in dark. Jaw pain also with eating and when wake up. sometimes so tense she has to massage it. mom has told her she grinds at night; she doenst notice clenching at night and eating sometimes makes it more sore. Dentist plans to wait to see if pain persists beofre giving mouth guard. knee pain is in ant knee and inf to patella. Hx of ankle strains Treatment Goals Patient/Caregiver Goals learn how to properly engage her muscles and avoid compensations & movement patterns; Learn what is normal ROM so can learn how to avoid excessive mobility; gain strength PT-OP-C Subjective Start: 04/08/24 07:38 Freq: Status: Active Protocol: Document 05/27/24 08:04 [facility] (Rec: 05/27/24 12:54 [facility] [id number]) OP-PT Subjective Patient Comments Patient Comments Patient reports she hasn't run since last session, hasn't tried shorter steps. PT-OP-D Balance Start: 04/08/24 07:38 Freq: Status: Active Protocol: Document 04/08/24 15:15 [facility] (Rec: 04/08/24 16:05 [facility] [id number]) Balance Tests Single Limb Standing Single Limb- Right >30 sec- pt a little wobbly Single Limb- Left >30 sec- pt a little wobbly PT-OP-F Manual Assessment Start: 04/08/24 07:38 Freq: Status: Active Protocol: Document 04/08/24 15:15 [facility] (Rec: 04/08/24 16:05 [facility] [id number]) Manual Assessments Joint Mobility Assessment Joint Mobility Assessment tenderness B patellar tendon, B quads, B calves, ITB, R HS Other Manual Assessments Other Manual Assessments / Beighton scale PT-OP-G Mobility & Gait Start: 04/08/24 07:38 Freq: Status: Active Protocol: Document 04/08/24 15:15 [facility] (Rec: 04/08/24 16:05 [facility] [id number]) OP Gait Assessment Comments Gait Comments dec push off B; dec LUE arm swing PT-OP-J Posture/Palpation/Skin Start: 04/08/24 07:38 Freq: Status: Active Protocol: Document 05/25/24 09:53 [facility] (Rec: 05/25/24 10:37 [facility] [id number]) Posture Evaluation Gisele Postural Classification System Vertical Compression Test 2 Elbow Flexion Test 2 Lumbar Protective Mechanism Left AP 1 Lumbar Protective Mechanism Right AP 2 Lumbar Protective Mechanism Left PA 2 Lumbar Protective Mechanism Right PA 2 PT-OP-K Range of Motion Start: 04/08/24 07:38 Freq: Status: Active Protocol: Document 05/25/24 09:53 [facility] (Rec: 05/25/24 10:37 [facility] [id number]) Ankle and Foot Goniometric Range of Motion Ankle and Foot ROM Limitations Comments 2.75 in to wall L; 2.5 in to wall PT-OP-M Strength Start: 04/08/24 07:38 Freq: Status: Active Protocol: Document 05/25/24 09:53 [facility] (Rec: 05/25/24 10:37 [facility] [id number]) Shoulder Strength Shoulder Manual Muscle Testing Right Flexion 4+ Good+ Extension 5 Normal Abduction (C5) 4+ Good+ External Rotation 4+ Good+ Internal Rotation 4+ Good+ Left Flexion 4+ Good+ Extension 5 Normal Abduction (C5) 4+ Good+ External Rotation 5 Normal Internal Rotation 4+ Good+ Elbow/Forearm Strength Elbow and Forearm Manual Muscle Testing Right Flexion (C6) 5 Normal Extension (C7) 5 Normal Pronation 4 Good Supination 4+ Good+ Left Flexion (C6) 5 Normal Extension (C7) 5 Normal Pronation 4 Good Supination 4+ Good+ Wrist Strength Wrist Manual Muscle Testing Left Flexion (C7) 5 Normal Extension (C6) 5 Normal Ulnar Deviation 5 Normal Radial Deviation 5 Normal Right Flexion (C7) 5 Normal Extension (C6) 5 Normal Ulnar Deviation 5 Normal Radial Deviation 5 Normal Hip Strength Hip Manual Muscle Testing Right Flexion (L2) 4- Good- Extension (S1) 5 Normal Abduction 5 Normal Adduction 5 Normal External Rotation 4 Good Internal Rotation 4+ Good+ Left Flexion (L2) 4- Good- Extension (S1) 5 Normal Abduction 5 Normal Adduction 5 Normal External Rotation 3+ Fair+ Internal Rotation 4+ Good+ Comments pain in knee w/ER Knee Strength Knee Manual Muscle Testing Right Flexion (S2) 4 Good Extension (L3) 5 Normal Left Flexion (S2) 4 Good Extension (L3) 5 Normal Ankle/Foot Strength Ankle and Foot Manual Muscle Testing Right Dorsiflexion (L4) 5 Normal Plantarflexion (S1) 5 Normal Left Dorsiflexion (L4) 5 Normal Plantarflexion (S1) 5 Normal Comments 20 heel raises B PT-OP-Q Treatments Start: 04/08/24 07:38 Freq: Status: Active Protocol: Document 05/27/24 08:04 [facility] (Rec: 05/27/24 12:54 [facility] [id number]) Therapeutic Exercises Sitting Exercises AROM DF Side bilateral Resistance level one band Reps/Minutes X15 without band X 15 with band Comments verbal cues Standing Exercises bilateral heel raise Standing Exercise Name on step Reps/Minutes X15 Comments verbal cues to lower heels slowly to floor calf stretches Standing Exercise Name gastroc & soleus Side bilateral Reps/Minutes 2X 60 seconds each stretch Comments verbal and visual cues squat Standing Exercise Name 2. bilateral squat with band Resistance 2. level 5 band Reps/Minutes X10 Comments Pt ed to perform post calf stretches for body over ankle movement Manual Therapy Treatment Soft Tissue Mobilization calf muscles Body Location bilateral calf muscles Mobilization Type Cross-Friction,Rolling, Sustained Pressure Intensity/Depth Moderate Comments prior to stretch Joint Mobilizations tib fib Joint distal bilateral ankles Direction AP and PA Grade IV Reps/Duration X10 X2 each ankle/foot Joint bilateral talocrural MWC bilateral ankles Direction AP Grade IV Body Position Standing Reps/Duration 2x15 each LE Comments Mulligan with movement TC mobilization PT-OP-T Assessment and Plan Start: 04/08/24 07:38 Freq: Status: Active Protocol: Document 05/27/24 08:04 [facility] (Rec: 05/27/24 12:54 [facility] [id number]) Physical Therapy Assessment Goals mobility Short Term Goal (STG) Pt will have improved ankle DF to at least 3 in to wall in order to improve knee mechanics and improve knee pain 8/6 improved STG Duration 730 Retail Team Member Goal (LTG) Pt will have improved ankle DF to at least 4 in to wall in order to improve knee mechanics and improve knee pain LTG Duration 9/12 posture Short Term Goal (STG) Pt will score at least 2/5 on VCT in order to show improved postural stability. STG Duration achieved 8/6 Skilled Nursing Goal (LTG) Pt will score at least 4/5 on VCT in order to show improved postural stability. LTG Duration 9/10 strength Short Term Goal (STG) Pt will be indep w/HEP for strength, moblity and posture. STG Duration achieved advancinga s able Retail Team Member Goal (LTG) Pt will score at least 4+/5 on all LE and UE MMT B and at least 3/5 on EFT and LPM to show improved stability to make daily activities easier w /dec pain. 05/25-improved LTG Duration 07/01 Assessment Summary Assessment Right ankle PROM body over ankle movement with no change this session. Trial of AROM and resisted DF post stretches added to HEP and patient ed to perform squats ie body over ankle movement post calf stretches. Physical Therapy Plan Frequency and Duration Frequency of Treatment 2x/Week Duration of treatment (weeks) 12 Plan of Care Start Date 04/08/24 Plan of Care End Date 07/01/24 Next Visit Focus/Plan Next Note Type Treatment Note Next Visit Plan cont to advance exercise progression for multi joint exercises Access IT, Glute med, R knee pain, Con't to challenge balance and stability by inc difficuty of exercises Review running gait as per request of pt so running can occur more w/o pain review single leg squat with band
--- NOTE | 2024-06-01 16:16 | PT.OTN ---
Current Diagnoses Hypermobility syndrome (06/01/24) Muscle weakness (generalized) (06/01/24) Abnormal posture (06/01/24) Physical Therapy Treatment Note PT-OP-A Visit Information Start: 04/08/24 07:38 Freq: Status: Active Protocol: Document 06/01/24 16:01 [facility] (Rec: 06/02/24 08:15 [facility] [id number]) Out-Patient Physical Therapy Visit Information Visit Information Visit Type Treatment Note Visit Note Visit [email or web address] Access Code: [email or web address] Visit Start Time 09:05 Visit Stop Time 09:45 Visit Number 10/03 Number of SAMPLE WRAPPER Visits 0 PT-OP-B Current Condition Start: 04/08/24 07:38 Freq: Status: Active Protocol: Document 04/08/24 15:15 [facility] (Rec: 04/08/24 16:05 [facility] [id number]) Current Condition History of Current Condition Onset Date childhood Current Complaints widespread pain (neck, wrists, knees) History of Current Condition Pt reports she has always had a bit of widespread pain. most frequnetly tendonitis issues that affects her all day long and her ability to sleep. her neck, wrist and knees are the areas she feels impact her the most. She is trying to figure out how to use her body correctly and dec pain. She said she keeps trying to get to see a dock attendant, but has been unable d[facility]t [facility] . Her mom got diagnosed recently w/mitral valve prolapse. recently just got ADHD dx. Trying to go to school and is planning to go to [place]. 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 Pt reports talkign to her mom, she was evaled for jeuvinile RA and it was inconclusive. She has had pain since she was small. She has had Xrays for neck and back when she was going through disability process. Cervical spine strain noted; B cervical radiculopathy, sciatic radiculopathy, cervical instability are the diagnoses that came from imaging[place]. She was only going 1x/month and one issue at a time. She has had some labwork but unsure what and that was normal so far. lightheadedness and dizziness w/supine to sit and sit to stand and strenuous exercise; GONZALEZ -mostly frontal and post ear B-doesn't know triggers- will get sensitive to light and noise and has to go lay down in dark. Jaw pain also with eating and when wake up. sometimes so tense she has to massage it. mom has told her she grinds at night; she doenst notice clenching at night and eating sometimes makes it more sore. Dentist plans to wait to see if pain persists beofre giving mouth guard. knee pain is in ant knee and inf to patella. Hx of ankle strains Treatment Goals Patient/Caregiver Goals learn how to properly engage her muscles and avoid compensations & movement patterns; Learn what is normal ROM so can learn how to avoid excessive mobility; gain strength PT-OP-C Subjective Start: 04/08/24 07:38 Freq: Status: Active Protocol: Document 06/01/24 16:01 [facility] (Rec: 06/02/24 08:15 [facility] [id number]) OP-PT Subjective Patient Comments Patient Comments Pt reports she has been swimming and that feels great PT-OP-D Balance Start: 04/08/24 07:38 Freq: Status: Active Protocol: Document 04/08/24 15:15 [facility] (Rec: 04/08/24 16:05 [facility] [id number]) Balance Tests Single Limb Standing Single Limb- Right >30 sec- pt a little wobbly Single Limb- Left >30 sec- pt a little wobbly PT-OP-F Manual Assessment Start: 04/08/24 07:38 Freq: Status: Active Protocol: Document 04/08/24 15:15 [facility] (Rec: 04/08/24 16:05 [facility] [id number]) Manual Assessments Joint Mobility Assessment Joint Mobility Assessment tenderness B patellar tendon, B quads, B calves, ITB, R HS Other Manual Assessments Other Manual Assessments 06/28 Beighton scale PT-OP-G Mobility & Gait Start: 04/08/24 07:38 Freq: Status: Active Protocol: Document 04/08/24 15:15 [facility] (Rec: 04/08/24 16:05 [facility] [id number]) OP Gait Assessment Comments Gait Comments dec push off B; dec LUE arm swing PT-OP-J Posture/Palpation/Skin Start: 04/08/24 07:38 Freq: Status: Active Protocol: Document 05/25/24 09:53 [facility] (Rec: 05/25/24 10:37 [facility] [id number]) Posture Evaluation Gisele Postural Classification System Vertical Compression Test 2 Elbow Flexion Test 2 Lumbar Protective Mechanism Left AP 1 Lumbar Protective Mechanism Right AP 2 Lumbar Protective Mechanism Left PA 2 Lumbar Protective Mechanism Right PA 2 PT-OP-K Range of Motion Start: 04/08/24 07:38 Freq: Status: Active Protocol: Document 05/25/24 09:53 [facility] (Rec: 05/25/24 10:37 [facility] [id number]) Ankle and Foot Goniometric Range of Motion Ankle and Foot ROM Limitations Comments 2.75 in to wall L; 2.5 in to wall PT-OP-M Strength Start: 04/08/24 07:38 Freq: Status: Active Protocol: Document 05/25/24 09:53 [facility] (Rec: 05/25/24 10:37 [facility] [id number]) Shoulder Strength Shoulder Manual Muscle Testing Right Flexion 4+ Good+ Extension 5 Normal Abduction (C5) 4+ Good+ External Rotation 4+ Good+ Internal Rotation 4+ Good+ Left Flexion 4+ Good+ Extension 5 Normal Abduction (C5) 4+ Good+ External Rotation 5 Normal Internal Rotation 4+ Good+ Elbow/Forearm Strength Elbow and Forearm Manual Muscle Testing Right Flexion (C6) 5 Normal Extension (C7) 5 Normal Pronation 4 Good Supination 4+ Good+ Left Flexion (C6) 5 Normal Extension (C7) 5 Normal Pronation 4 Good Supination 4+ Good+ Wrist Strength Wrist Manual Muscle Testing Left Flexion (C7) 5 Normal Extension (C6) 5 Normal Ulnar Deviation 5 Normal Radial Deviation 5 Normal Right Flexion (C7) 5 Normal Extension (C6) 5 Normal Ulnar Deviation 5 Normal Radial Deviation 5 Normal Hip Strength Hip Manual Muscle Testing Right Flexion (L2) 4- Good- Extension (S1) 5 Normal Abduction 5 Normal Adduction 5 Normal External Rotation 4 Good Internal Rotation 4+ Good+ Left Flexion (L2) 4- Good- Extension (S1) 5 Normal Abduction 5 Normal Adduction 5 Normal External Rotation 3+ Fair+ Internal Rotation 4+ Good+ Comments pain in knee w/ER Knee Strength Knee Manual Muscle Testing Right Flexion (S2) 4 Good Extension (L3) 5 Normal Left Flexion (S2) 4 Good Extension (L3) 5 Normal Ankle/Foot Strength Ankle and Foot Manual Muscle Testing Right Dorsiflexion (L4) 5 Normal Plantarflexion (S1) 5 Normal Left Dorsiflexion (L4) 5 Normal Plantarflexion (S1) 5 Normal Comments 20 heel raises B PT-OP-Q Treatments Start: 04/08/24 07:38 Freq: Status: Active Protocol: Document 06/01/24 16:01 [facility] (Rec: 06/02/24 08:15 [facility] [id number]) Therapeutic Exercises Standing Exercises DF Standing Exercise Name back at wall Side bilateral Reps/Minutes 30 lunges Standing Exercise Name walking w/mirror and line for foot placement and knee Side bilateral Reps/Minutes 6x20ft Comments VC squat Standing Exercise Name SL squat with band Resistance level 2 TB Reps/Minutes 15 Comments cues for knee tracking and hips level Gait Training Gait Activity gait at wall Comments 5 reps w/o hold then 5x10 sec hold; cues knee ext running Comments working on arm swing to inc push off 8x70ft Manual Therapy Treatment Consent Patient gave verbal consent for manual Yes treatment Soft Tissue Mobilization quad/hip flexor Body Location R Mobilization Type Rolling Intensity/Depth Moderate Comments in cristy test position calf muscles Body Location bilateral calf muscles Mobilization Type Cross-Friction,Rolling, Sustained Pressure Intensity/Depth Moderate Comments prior to stretch PT-OP-T Assessment and Plan Start: 04/08/24 07:38 Freq: Status: Active Protocol: Document 06/01/24 16:01 [facility] (Rec: 06/02/24 08:15 [facility] [id number]) Physical Therapy Assessment Goals mobility Short Term Goal (STG) Pt will have improved ankle DF to at least 3 in to wall in order to improve knee mechanics and improve knee pain 8/6 improved STG Duration 05/18 Screen Examiner Goal (LTG) Pt will have improved ankle DF to at least 4 in to wall in order to improve knee mechanics and improve knee pain LTG Duration 9/12 posture Short Term Goal (STG) Pt will score at least 2/5 on VCT in order to show improved postural stability. STG Duration achieved 8/6 Screen Examiner Goal (LTG) Pt will score at least 4/5 on VCT in order to show improved postural stability. LTG Duration 9/ strength Short Term Goal (STG) Pt will be indep w/HEP for strength, moblity and posture. STG Duration achieved advancinga s able [facility] Goal (LTG) Pt will score at least 4+/5 on all LE and UE MMT B and at least 3/5 on EFT and LPM to show improved stability to make daily activities easier w /dec pain. /-improved LTG Duration 07/01 Assessment Summary Assessment pt had improved running w/less add and improved push off w/ cues for arms. needed cues w/ strength for hip/knee alignment. Physical Therapy Plan Frequency and Duration Frequency of Treatment 2x/Week Duration of treatment (weeks) 12 Plan of Care Start Date 04/08/24 Plan of Care End Date 07/01/24 Next Visit Focus/Plan Next Note Type Treatment Note Next Visit Plan cont to work on running mechanics. start jumping mechanics. work on full body stability
--- NOTE | 2024-06-03 12:08 | PT.OTN ---
Current Diagnoses Hypermobility syndrome (06/03/24) Muscle weakness (generalized) (06/03/24) Abnormal posture (06/03/24) Physical Therapy Treatment Note PT-OP-A Visit Information Start: 04/08/24 07:38 Freq: Status: Active Protocol: Document 06/03/24 09:56 [facility] (Rec: 06/03/24 12:08 [facility] [id number]) Out-Patient Physical Therapy Visit Information Visit Information Visit Type Treatment Note Visit Note Visit [email or web address] Access Code: [email or web address] Visit Start Time 10:30 Visit Stop Time 11:12 Visit Number Number of PROMOTION WRITER Visits 1 PT-OP-B Current Condition Start: 04/08/24 07:38 Freq: Status: Active Protocol: Document 04/08/24 15:15 [facility] (Rec: 04/08/24 16:05 [facility] [id number]) Current Condition History of Current Condition Onset Date childhood Current Complaints widespread pain (neck, wrists, knees) History of Current Condition Pt reports she has always had a bit of widespread pain. most frequnetly tendonitis issues that affects her all day long and her ability to sleep. her neck, wrist and knees are the areas she feels impact her the most. She is trying to figure out how to use her body correctly and dec pain. She said she keeps trying to get to see a supervisor poultry farm, but has been unable d[facility]t [facility] process . Her mom got diagnosed recently w/mitral valve prolapse. recently just got ADHD dx. Trying to go to school and is planning to go to [employer]. 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 Pt reports talkign to her mom, she was evaled for jeuvinile RA and it was inconclusive. She has had pain since she was small. She has had Xrays for neck and back when she was going through disability process. Cervical spine strain noted; B cervical radiculopathy, sciatic radiculopathy, cervical instability are the diagnoses that came from imaging[place]. She was only going 1x/month and one issue at a time. She has had some labwork but unsure what and that was normal so far. lightheadedness and dizziness w/supine to sit and sit to stand and strenuous exercise; GONZALEZ -mostly frontal and post ear B-doesn't know triggers- will get sensitive to light and noise and has to go lay down in dark. Jaw pain also with eating and when wake up. sometimes so tense she has to massage it. mom has told her she grinds at night; she doenst notice clenching at night and eating sometimes makes it more sore. Dentist plans to wait to see if pain persists beofre giving mouth guard. knee pain is in ant knee and inf to patella. Hx of ankle strains Treatment Goals Patient/Caregiver Goals learn how to properly engage her muscles and avoid compensations & movement patterns; Learn what is normal ROM so can learn how to avoid excessive mobility; gain strength PT-OP-C Subjective Start: 04/08/24 07:38 Freq: Status: Active Protocol: Document 06/03/24 09:56 [facility] (Rec: 06/03/24 12:08 [facility] [id number]) OP-PT Subjective Patient Comments Patient Comments Patient reports she is swimming hasn't tried running. Left single leg squat increased dynamic valgus ~70 deg right LE slow valgus with ipsilateral trunk sidebend from initiation. PT-OP-D Balance Start: 04/08/24 07:38 Freq: Status: Active Protocol: Document 04/08/24 15:15 [facility] (Rec: 04/08/24 16:05 [facility] [id number]) Balance Tests Single Limb Standing Single Limb- Right >30 sec- pt a little wobbly Single Limb- Left >30 sec- pt a little wobbly PT-OP-F Manual Assessment Start: 04/08/24 07:38 Freq: Status: Active Protocol: Document 04/08/24 15:15 [facility] (Rec: 04/08/24 16:05 [facility] [id number]) Manual Assessments Joint Mobility Assessment Joint Mobility Assessment tenderness B patellar tendon, B quads, B calves, ITB, R HS Other Manual Assessments Other Manual Assessments 9/ Beighton scale PT-OP-G Mobility & Gait Start: 04/08/24 07:38 Freq: Status: Active Protocol: Document 04/08/24 15:15 [facility] (Rec: 04/08/24 16:05 [facility] [id number]) OP Gait Assessment Comments Gait Comments dec push off B; dec LUE arm swing PT-OP-J Posture/Palpation/Skin Start: 04/08/24 07:38 Freq: Status: Active Protocol: Document 05/25/24 09:53 [facility] (Rec: 05/25/24 10:37 [facility] [id number]) Posture Evaluation Gisele Postural Classification System Vertical Compression Test 2 Elbow Flexion Test 2 Lumbar Protective Mechanism Left AP 1 Lumbar Protective Mechanism Right AP 2 Lumbar Protective Mechanism Left PA 2 Lumbar Protective Mechanism Right PA 2 PT-OP-K Range of Motion Start: 04/08/24 07:38 Freq: Status: Active Protocol: Document 05/25/24 09:53 [facility] (Rec: 05/25/24 10:37 [facility] [id number]) Ankle and Foot Goniometric Range of Motion Ankle and Foot ROM Limitations Comments 2.75 in to wall L; 2.5 in to wall PT-OP-M Strength Start: 04/08/24 07:38 Freq: Status: Active Protocol: Document 05/25/24 09:53 [facility] (Rec: 05/25/24 10:37 [facility] [id number]) Shoulder Strength Shoulder Manual Muscle Testing Right Flexion 4+ Good+ Extension 5 Normal Abduction (C5) 4+ Good+ External Rotation 4+ Good+ Internal Rotation 4+ Good+ Left Flexion 4+ Good+ Extension 5 Normal Abduction (C5) 4+ Good+ External Rotation 5 Normal Internal Rotation 4+ Good+ Elbow/Forearm Strength Elbow and Forearm Manual Muscle Testing Right Flexion (C6) 5 Normal Extension (C7) 5 Normal Pronation 4 Good Supination 4+ Good+ Left Flexion (C6) 5 Normal Extension (C7) 5 Normal Pronation 4 Good Supination 4+ Good+ Wrist Strength Wrist Manual Muscle Testing Left Flexion (C7) 5 Normal Extension (C6) 5 Normal Ulnar Deviation 5 Normal Radial Deviation 5 Normal Right Flexion (C7) 5 Normal Extension (C6) 5 Normal Ulnar Deviation 5 Normal Radial Deviation 5 Normal Hip Strength Hip Manual Muscle Testing Right Flexion (L2) 4- Good- Extension (S1) 5 Normal Abduction 5 Normal Adduction 5 Normal External Rotation 4 Good Internal Rotation 4+ Good+ Left Flexion (L2) 4- Good- Extension (S1) 5 Normal Abduction 5 Normal Adduction 5 Normal External Rotation 3+ Fair+ Internal Rotation 4+ Good+ Comments pain in knee w/ER Knee Strength Knee Manual Muscle Testing Right Flexion (S2) 4 Good Extension (L3) 5 Normal Left Flexion (S2) 4 Good Extension (L3) 5 Normal Ankle/Foot Strength Ankle and Foot Manual Muscle Testing Right Dorsiflexion (L4) 5 Normal Plantarflexion (S1) 5 Normal Left Dorsiflexion (L4) 5 Normal Plantarflexion (S1) 5 Normal Comments 20 heel raises B PT-OP-Q Treatments Start: 04/08/24 07:38 Freq: Status: Active Protocol: Document 06/03/24 09:56 [facility] (Rec: 06/03/24 12:08 AB [id number]) Gym Equipment Shuttle Recovery jumps Details 1. bilateral, 2 single leg Resistance 12lb then 25lb Reps/Time X10 12 and 25 lb single then double. Therapeutic Exercises Standing Exercises DF Standing Exercise Name back at wall Side bilateral Reps/Minutes 30 Glute med isometric Side bilateral Reps/Minutes one minute hold X 1 Comments verbal and visual cues calf stretches Standing Exercise Name gastroc & soleus Side bilateral Reps/Minutes 3X 60 seconds each stretch Comments verbal and visual cues squat Standing Exercise Name SL squat with band Resistance level 2 TB Reps/Minutes 15 Comments cues for knee tracking and hips level Other Exercises bird dog Resistance 1 lb weights on ankles and in UE's Reps/Minutes 15 ea Gait Training Gait Activity running Description outdoors Comments working on decreased step length, arm swing and less quad dominant pattern. Also demonstrated and performed stepping down stairs without rails with a less quad dominant pattern. Neuro Re-Education Treatment Coordination Activities ladder Details 1. Step in step out lat 2, fwd jumps Reps/Duration 1 left and right X 3 2. 3-4 min Comments Verbal cues and mirror for avoiding dynamic valgus with jumps PT-OP-T Assessment and Plan Start: 04/08/24 07:38 Freq: Status: Active Protocol: Document 06/03/24 09:56 [facility] (Rec: 06/03/24 12:08 AB [id number]) Physical Therapy Assessment Goals mobility Short Term Goal (STG) Pt will have improved ankle DF to at least 3 in to wall in order to improve knee mechanics and improve knee pain 8/6 improved STG Duration 30 Environmental Health Nurse Goal (LTG) Pt will have improved ankle DF to at least 4 in to wall in order to improve knee mechanics and improve knee pain LTG Duration 912 posture Short Term Goal (STG) Pt will score at least 2/5 on VCT in order to show improved postural stability. STG Duration achieved 8/6 Detention Goal (LTG) Pt will score at least 4/5 on VCT in order to show improved postural stability. LTG Duration 06/29 strength Short Term Goal (STG) Pt will be indep w/HEP for strength, moblity and posture. STG Duration achieved advancinga s able Detention Goal (LTG) Pt will score at least 4+/5 on all LE and UE MMT B and at least 3/5 on EFT and LPM to show improved stability to make daily activities easier w /dec pain. 05/25-improved LTG Duration 07/01 Assessment Summary Assessment Susan reports knee pain decreased but not elimnated with decreased step length. Dynamic valgus with single leg squats persist left and right LE, but starts later on left and is less intense on right Physical Therapy Plan Frequency and Duration Frequency of Treatment 2x/Week Duration of treatment (weeks) 12 Plan of Care Start Date 04/08/24 Plan of Care End Date 07/01/24 Next Visit Focus/Plan Next Note Type Treatment Note Next Visit Plan cont to work on running mechanics/assess iveth to changes made previous session. start jumping mechanics. work on full body stability Possibly manual to ankles prior to jumping.
--- NOTE | 2024-07-12 10:07 | PT.OPDS ---
Current Diagnoses Hypermobility syndrome (06/03/24) Muscle weakness (generalized) (06/03/24) Abnormal posture (06/03/24) Visit Care Team Role Provider Type Malena Angel MD Attending Provider Non-Staff Family Provider Primary Care Provider Referring Provider Specialty: Family Practice Address: [address] [place] [address], [place], [address] Email: Visit Number Visit Number Discharge Summary PT-OP-B Current Condition Start: 04/08/24 07:38 Freq: Status: Active Protocol: Document 04/08/24 15:15 [facility] (Rec: 04/08/24 16:05 [facility] [id number]) Current Condition History of Current Condition Onset Date childhood Current Complaints widespread pain (neck, wrists, knees) History of Current Condition Pt reports she has always had a bit of widespread pain. most frequnetly tendonitis issues that affects her all day long and her ability to sleep. her neck, wrist and knees are the areas she feels impact her the most. She is trying to figure out how to use her body correctly and dec pain. She said she keeps trying to get to see a dielectric tester, but has been unable d/t [facility] . Her mom got diagnosed recently w/mitral valve prolapse. recently just got ADHD dx. Trying to go to school and is planning to go to [employer]. 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 Pt reports talkign to her mom, she was evaled for jeuvinile RA and it was inconclusive. She has had pain since she was small. She has had Xrays for neck and back when she was going through disability process. Cervical spine strain noted; B cervical radiculopathy, sciatic radiculopathy, cervical instability are the diagnoses that came from imaging[place]. She was only going 1x/month and one issue at a time. She has had some labwork but unsure what and that was normal so far. lightheadedness and dizziness w/supine to sit and sit to stand and strenuous exercise; GONZALEZ -mostly frontal and post ear B-doesn't know triggers- will get sensitive to light and noise and has to go lay down in dark. Jaw pain also with eating and when wake up. sometimes so tense she has to massage it. mom has told her she grinds at night; she doenst notice clenching at night and eating sometimes makes it more sore. Dentist plans to wait to see if pain persists beofre giving mouth guard. knee pain is in ant knee and inf to patella. Hx of ankle strains Treatment Goals Patient/Caregiver Goals learn how to properly engage her muscles and avoid compensations & movement patterns; Learn what is normal ROM so can learn how to avoid excessive mobility; gain strength PT-OP-C Subjective Start: 04/08/24 07:38 Freq: Status: Active Protocol: Document 06/03/24 09:56 AB (Rec: 06/03/24 12:08 AB [id number]) OP-PT Subjective Patient Comments Patient Comments Patient reports she is swimming hasn't tried running. Left single leg squat increased dynamic valgus ~70 deg right LE slow valgus with ipsilateral trunk sidebend from initiation. PT-OP-D Balance Start: 04/08/24 07:38 Freq: Status: Active Protocol: Document 04/08/24 15:15 [facility] (Rec: 04/08/24 16:05 [facility] [id number]) Balance Tests Single Limb Standing Single Limb- Right >30 sec- pt a little wobbly Single Limb- Left >30 sec- pt a little wobbly PT-OP-F Manual Assessment Start: 04/08/24 07:38 Freq: Status: Active Protocol: Document 04/08/24 15:15 [facility] (Rec: 04/08/24 16:05 [facility] [id number]) Manual Assessments Joint Mobility Assessment Joint Mobility Assessment tenderness B patellar tendon, B quads, B calves, ITB, R HS Other Manual Assessments Other Manual Assessments 06/28 Beighton scale PT-OP-G Mobility & Gait Start: 04/08/24 07:38 Freq: Status: Active Protocol: Document 04/08/24 15:15 [facility] (Rec: 04/08/24 16:05 [facility] [id number]) OP Gait Assessment Comments Gait Comments dec push off B; dec LUE arm swing PT-OP-J Posture/Palpation/Skin Start: 04/08/24 07:38 Freq: Status: Active Protocol: Document 05/25/24 09:53 LR (Rec: 05/25/24 10:37 [facility] [id number]) Posture Evaluation Gisele Postural Classification System Vertical Compression Test 2 Elbow Flexion Test 2 Lumbar Protective Mechanism Left AP 1 Lumbar Protective Mechanism Right AP 2 Lumbar Protective Mechanism Left PA 2 Lumbar Protective Mechanism Right PA 2 PT-OP-K Range of Motion Start: 04/08/24 07:38 Freq: Status: Active Protocol: Document 05/25/24 09:53 [facility] (Rec: 05/25/24 10:37 [facility] [id number]) Ankle and Foot Goniometric Range of Motion Ankle and Foot ROM Limitations Comments 2.75 in to wall L; 2.5 in to wall PT-OP-M Strength Start: 04/08/24 07:38 Freq: Status: Active Protocol: Document 05/25/24 09:53 [facility] (Rec: 05/25/24 10:37 [facility] [id number]) Shoulder Strength Shoulder Manual Muscle Testing Right Flexion 4+ Good+ Extension 5 Normal Abduction (C5) 4+ Good+ External Rotation 4+ Good+ Internal Rotation 4+ Good+ Left Flexion 4+ Good+ Extension 5 Normal Abduction (C5) 4+ Good+ External Rotation 5 Normal Internal Rotation 4+ Good+ Elbow/Forearm Strength Elbow and Forearm Manual Muscle Testing Right Flexion (C6) 5 Normal Extension (C7) 5 Normal Pronation 4 Good Supination 4+ Good+ Left Flexion (C6) 5 Normal Extension (C7) 5 Normal Pronation 4 Good Supination 4+ Good+ Wrist Strength Wrist Manual Muscle Testing Left Flexion (C7) 5 Normal Extension (C6) 5 Normal Ulnar Deviation 5 Normal Radial Deviation 5 Normal Right Flexion (C7) 5 Normal Extension (C6) 5 Normal Ulnar Deviation 5 Normal Radial Deviation 5 Normal Hip Strength Hip Manual Muscle Testing Right Flexion (L2) 4- Good- Extension (S1) 5 Normal Abduction 5 Normal Adduction 5 Normal External Rotation 4 Good Internal Rotation 4+ Good+ Left Flexion (L2) 4- Good- Extension (S1) 5 Normal Abduction 5 Normal Adduction 5 Normal External Rotation 3+ Fair+ Internal Rotation 4+ Good+ Comments pain in knee w/ER Knee Strength Knee Manual Muscle Testing Right Flexion (S2) 4 Good Extension (L3) 5 Normal Left Flexion (S2) 4 Good Extension (L3) 5 Normal Ankle/Foot Strength Ankle and Foot Manual Muscle Testing Right Dorsiflexion (L4) 5 Normal Plantarflexion (S1) 5 Normal Left Dorsiflexion (L4) 5 Normal Plantarflexion (S1) 5 Normal Comments 20 heel raises B PT-OP-T Assessment and Plan Start: 04/08/24 07:38 Freq: Status: Active Protocol: Document 07/12/24 10:06 [facility] (Rec: 07/12/24 10:07 [facility] [id number]) Physical Therapy Assessment Goals mobility Short Term Goal (STG) Pt will have improved ankle DF to at least 3 in to wall in order to improve knee mechanics and improve knee pain 05/25 improved STG Duration 05/18 Group Home Goal (LTG) Pt will have improved ankle DF to at least 4 in to wall in order to improve knee mechanics and improve knee pain LTG Duration 07/01 posture Short Term Goal (STG) Pt will score at least 2/5 on VCT in order to show improved postural stability. STG Duration achieved 05/25 Formulation Chemist Goal (LTG) Pt will score at least 4/5 on VCT in order to show improved postural stability. LTG Duration 06/29 strength Short Term Goal (STG) Pt will be indep w/HEP for strength, moblity and posture. STG Duration achieved advancinga s able Formulation Chemist Goal (LTG) Pt will score at least 4+/5 on all LE and UE MMT B and at least 3/5 on EFT and LPM to show improved stability to make daily activities easier w /dec pain. 05/25-improved LTG Duration 07/01 Assessment Summary Assessment pt did improve w/posture and stability with PT, but still had pain related to chronic pain areas. She was doing well w/HEP and planned to see PT 1 more time but therapist was out sick and pt was finishing this chart and opening another for pelvic floor so had to be DC. DC d/t no longer attending PT. Physical Therapy Plan Discharge Physical Therapy Discharge Reasons No Longer Attending PT
== END 2024-07-22 14:58 | disposition home or self-care (01) ==
LOC: PHYS 10:30
PROVIDERS: Family Provider Family Medicine; PCP Family Medicine; Referring Provider Family Medicine; Visit Provider Family Medicine
DX: M35.7 Hypermobility syndrome (principal); M62.81 Muscle weakness (generalized); R29.3 Abnormal posture
CPT/HCPCS: 97110; 97112; 97116; 97140; 97163

== ENCOUNTER 2024-06-17 13:00 | Outpatient (RCR) | payer OTHER, SELFPAY ==
--- NOTE | 2024-06-10 16:35 | PT.OIE ---
Current Diagnoses Deep dyspareunia (06/10/24) Visit Care Team Role Provider Type Malena Angel MD Attending Provider Non-Staff Family Provider Primary Care Provider Referring Provider Specialty: Family Practice Address: [address] [place] [address], [place], [address] Email: Physical Therapy Initial Evaluation PT-OP-A Visit Information Start: 06/08/24 17:39 Freq: Status: Active Protocol: Document 06/10/24 13:01 LRN (Rec: 06/10/24 13:45 LRN [id number]) Out-Patient Physical Therapy Visit Information Visit Information Visit Type Initial Evaluation Visit Start Time 13:01 Visit Stop Time 13:41 Visit Number 1 Evaluation Information Evaluation Date 06/10/24 Precautions Precautions Per outtake form: Fibromyalgia, neck/back pain, ADHD, PTSD, Hypermobility Spectrum Disorder PT-OP-B Current Condition Start: 06/08/24 17:39 Freq: Status: Active Protocol: Document 06/10/24 13:01 LRN (Rec: 06/10/24 13:45 LRN [id number]) Current Condition History of Current Condition Onset Date Since age 10 (2010) Current Complaints Lower abdominal and rectal pain (shooting/stabbing/ throbbing). History of Current Condition Pelvic pain every time one day before a menstrual cycle and during the entire menstrual cycle and sometimes with intercourse. When on control pills, the pain wasn't as bad, but when off of the pill the pain was much worse. She has concerns she might have endometriosis. She was on control since age 11 to 19. Recently, she from , so was [facility] by [facility]oc[facility] for a pelvic exam and was told she did not need for surgery endometriosi, but an ultrasound showed ovary was a little odd; therefore was referred for PF therapy. Pt reports she drinks up to 32 oz of fluid a day (wgt is 130- 135#). Prior Treatments and Tests PT recently for general joint pain, therapist Delisa Ortiz . 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 Has been diagnosed with fibromyalgia for now. PMH: PTSD, ADHD, dizziness with sti<>stand. Treatment Goals Patient/Caregiver Goals Pt goals: Decrease pelvic from 8/10 to 4 /10, Pt is bedridden for 2 days, improve function with pt able to be out of bed day after the lower abdominal pain onset starts. Pt educated in self care to manage the pain. Pt will be independent in HEP. Personal Factors Other Personal Factors That May Effect Pt reports: PTSD being treated Therapy/Recovery w/sleep aid, ADHD controlled by meds, general joint pain that is being assessed for Hypermobility Spectrum Disorder PT-OP-C Subjective Start: 06/08/24 17:39 Freq: Status: Active Protocol: Document 06/10/24 13:01 LRN (Rec: 06/10/24 13:45 LRN [id number]) Patient Questionnaires Pelvic Pain and Urgency/Frequency Patient Symptom Scale Pelvic Pain Score 7 OP-PT Pain Assessment Comments Pain Comments Pt notes general pain in kassy joints of the wrists, elbows, hips, knees, ankles and in the neck, low back, and to of the head, and in the chest and above the bilateral scapula, rated 8/10 in all areas. PT-OP-I Pelvic Floor Start: 06/08/24 17:39 Freq: Status: Active Protocol: Document 06/10/24 13:01 LRN (Rec: 06/10/24 16:33 LRN [id number]) Pelvic Floor Assessment Pelvic Clock Pelvic Clock 12-3 Tenderness Pelvic Clock 3-6 Tenderness Pelvic Clock Other Tenderness specifically at PF clock 2 & 5. Prolapse Urethrocele Grade 1 Perineal Descent Resting Present Bearing Present PT-OP-J Posture/Palpation/Skin Start: 06/08/24 17:39 Freq: Status: Active Protocol: Document 06/10/24 13:01 LRN (Rec: 06/10/24 13:45 LRN [id number]) Posture Evaluation Position Standing Head/C-Spine Posture Forward Head L-Spine Posture Increased Lordosis Weight Distribution Weight Shifted Anterior Comments Posture Comments L lateral border of scapula is posterior R>L. Palpation Assessment Location Abdomen Palpation Location Lower and middle/upper abdomen Palpation Findings Tenderness Palpation Details Tenderness in lower abdomen. Soft tissue tightness in entire abdominal region. PT-OP-K Range of Motion Start: 06/08/24 17:39 Freq: Status: Active Protocol: Document 06/10/24 13:01 LRN (Rec: 06/10/24 13:45 LRN [id number]) Lumbar Spine Range of Motion Lumbar Spine Active Degrees Testing Position Standing Flexion 70 Extension 50 Rotation Left 50 Rotation Right 47 Lateral Flexion Left 25 Lateral Flexion Right 25 Hip Goniometric Range of Motion Hip Right Passive Testing Position Supine Straight Leg Raise 93 Abduction 40 Internal Rotation 50 External Rotation 75 Left Passive Testing Position Supine Straight Leg Raise 78 Abduction 40 Internal Rotation 40 External Rotation 70 PT-OP-M Strength Start: 06/08/24 17:39 Freq: Status: Active Protocol: Document 06/10/24 13:01 LRN (Rec: 06/10/24 13:45 LRN [id number]) Trunk Strength Trunk Manual Muscle Testing Core Stabilization Good trunk strength Hip Strength Hip Manual Muscle Testing Right Flexion (L2) 3+ Fair+ External Rotation 4+ Good+ Comments Strength is 5/5 except as indicated above. Left External Rotation 3+ Fair+ Comments Strength is 5/5 except as indicated above. PT-OP-Q Treatments Start: 06/08/24 17:39 Freq: Status: Active Protocol: Document 06/10/24 13:01 LRN (Rec: 06/10/24 13:45 LRN [id number]) Therapeutic Exercises Supine Exercises Diaphragmatic Breathing Supine Exercise Name Assessed breathing mechanics - supine and at end of treatment in standing. Reps/Minutes 2' Self-Care/Home Management Treatment Education Other Education Discussed results of evaluation, goals, treatment, and plan of care (POC) with pt , discussed attendance/cx/dns policy; pt agreeable to evaluation, goals, treatment, attendance/cx/dns policy and POC. Activities Self-Care/Home Management Activities Issued & reveiwed 2 handouts for Diaphragmatic Breathing. PT-OP-T Assessment and Plan Start: 06/08/24 17:39 Freq: Status: Active Protocol: Document 06/10/24 13:01 LRN (Rec: 06/10/24 13:45 LRN [id number]) Physical Therapy Assessment Rehab Potential Rehabilitation Potential Excellent Evaluation Complexity Number of Personal Factors/Comorbidities 3 or More Number of Body Systems Impaired 4 or More Clinical Presentation at Evaluation Evolving Impairments Impairments Activity Tolerance,Pain, Posture,ROM,Soft Tissue Mobility,Strength,Transfers Goals Three Impairment Pelvic pain rated 8/10 prior to and during menstruation. Short Term Goal (STG) Pt will be educated in proper posturing in sit/stand/ nighttime positioning. STG Duration 2 wks-06/25/24 Assisted Goal (LTG) Decrease pelvic 50% to max 4/ 10 prior to and during menstruation. LTG Duration 12 wks-09/03/24 Two Impairment Pt bedridden 2 days prior and at start of menstruation cycle due to pain. Short Term Goal (STG) Pt educated in self care pain management and use of deep breathing to reduce her PF pain. STG Duration 4 wks-07/09/24 Shaping Machine Tender Goal (LTG) Improve pt function at start of menstual cycle with pt able to get out of bed the day after the lower abdominal pain onset starts. LTG Duration 12 wks-09/03/24 One Impairment Pt lacks an independent self care HEP. Short Term Goal (STG) Pt educated in transfers and abdominal ex to lessen her core abdominal pressure. STG Duration 1 wk-06/18/24 Assisted Goal (LTG) Pt will be independent in a self care HEP for PF stretching and strengthening ex's, & coordinating with core /hip muscle tightening to improve pelvic stability and decreased pain.. LTG Duration 12 wks-09/03/24 Assessment Summary Assessment Pt is a 23 yo female who presents with lower abdominal pelvic pain, and with internal exam PF pain at 2 and 5 of the PF clock (lateral borders of bladder and uterus). Her uterus appears to have dropped and is palpable at finger depth of ~5 cm. She demonstrates postural deviations (incr'd lordosis/ fwd head), decreased L hip ( Hamstring, 5 deg's ER) mobility, and weakness of R hip flexors and ER's, decreased core stability. The pt will benefit from skilled physical therapy to decreased soft tissue tightness/pain, improve posture and pelvic stability, educate pt in self care pain management and methods of transfer to reduce abdminal tension and reduce core pressure and improve LE circulation. Visibly the pt demonstrates poor tissue health with PF tissues notably dry and red. The pt would probably benefit from medication to improve tissue health. The pt will benefit from skilled physical therapy to address the previous stated changes and to work towards achieving the above stated goals. Physical Therapy Plan Frequency and Duration Frequency of Treatment 1x/Week Duration of treatment (weeks) 12 Plan of Care Start Date 06/10/24 Plan of Care End Date 09/03/24 Therapeutic Interventions Therapeutic Interventions Gait Training,Home Exercise Program,Manual Therapy, Neuromuscular Re-education, Self-Care/Home Management,Soft Tissue Mobilization,Taping, Therapeutic Activities, Therapeutic Exercises Modalities Biofeedback,Electric Stimulation,Hot Packs Next Visit Focus/Plan Next Note Type Treatment Note Next Visit Plan Next: Asssess PF strength. Pt to do bladder diary and discuss fluid intake/output, training for core pressure management with core relaxation, proper deep breathing, and proper breathing with transfers and body mechanics. Ther Ex: General LE ex to improve circulation, PF relaxation, core/hip (ER, R flex) strengthening, improve hip IR and trunk extension mobility. Educate/discuss: self pain mgmt, sit to stand w/breathe, and moving in bed using breathwork and core/PF stabilization for proper abdominal pressure system, STM of PF, and abdomen (and urachus) & bladder mobility. POC: Pt education, Manual therapy. Biofeedback with vaginal sensor. Therapeutic Exercises, Therapeutic Activities, Neuromuscular Reeducation.
--- NOTE | 2024-06-10 16:37 | PT.OPPOC ---
Physical, Occupational & Speech Therapy At [facility] Current Diagnoses Postural lordosis, lumbar region (06/10/24) Low back pain, unspecified (06/10/24) Muscle weakness (generalized) (06/10/24) Deep dyspareunia (06/10/24) Visit Care Team Role Provider Type Malena Angel MD Attending Provider Non-Staff Family Provider Primary Care Provider Referring Provider Specialty: Family Practice Address: [address] [place] [address], [address] Email: Plan Of Care PT-OP-B Current Condition Start: 06/08/24 17:39 Freq: Status: Active Protocol: Document 06/10/24 13:01 LRN (Rec: 06/10/24 13:45 LRN [id number]) Current Condition History of Current Condition Onset Date Since age 10 (2010) Current Complaints Lower abdominal and rectal pain (shooting/stabbing/ throbbing). History of Current Condition Pelvic pain every time one day before a menstrual cycle and during the entire menstrual cycle and sometimes with intercourse. When on control pills, the pain wasn't as bad, but when off of the pill the pain was much worse. She has concerns she might have endometriosis. She was on control since age 11 to 19. Recently, she from , so was seen by [facility] gynocologist for a pelvic exam and was told she did not need for surgery endometriosi, but an ultrasound showed ovary was a little odd; therefore was referred for PF therapy. Pt reports she drinks up to 32 oz of fluid a day (wgt is 130- 135#). Prior Treatments and Tests PT recently for general joint pain, therapist Delisa Ortiz . 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 Has been diagnosed with fibromyalgia for now. PMH: PTSD, ADHD, dizziness with sti<>stand. Treatment Goals Patient/Caregiver Goals Pt goals: Decrease pelvic from 8/10 to 4 /10, Pt is bedridden for 2 days, improve function with pt able to be out of bed day after the lower abdominal pain onset starts. Pt educated in self care to manage the pain. Pt will be independent in HEP. Personal Factors Other Personal Factors That May Effect Pt reports: PTSD being treated Therapy/Recovery w/sleep aid, ADHD controlled by meds, general joint pain that is being assessed for Hypermobility Spectrum Disorder PT-OP-T Assessment and Plan Start: 06/08/24 17:39 Freq: Status: Active Protocol: Document 06/10/24 13:01 LRN (Rec: 06/10/24 13:45 LRN [id number]) Physical Therapy Assessment Rehab Potential Rehabilitation Potential Excellent Evaluation Complexity Number of Personal Factors/Comorbidities 3 or More Number of Body Systems Impaired 4 or More Clinical Presentation at Evaluation Evolving Impairments Impairments Activity Tolerance,Pain, Posture,ROM,Soft Tissue Mobility,Strength,Transfers Goals Three Impairment Pelvic pain rated 8/10 prior to and during menstruation. Short Term Goal (STG) Pt will be educated in proper posturing in sit/stand/ nighttime positioning. STG Duration 2 wks-06/25/24 Kier Pleater Goal (LTG) Decrease pelvic 50% to max 4/ 10 prior to and during menstruation. LTG Duration 12 wks-09/03/24 Two Impairment Pt bedridden 2 days prior and at start of menstruation cycle due to pain. Short Term Goal (STG) Pt educated in self care pain management and use of deep breathing to reduce her PF pain. STG Duration 4 wks-07/09/24 Correction Goal (LTG) Improve pt function at start of menstual cycle with pt able to get out of bed the day after the lower abdominal pain onset starts. LTG Duration 12 wks-09/03/24 One Impairment Pt lacks an independent self care HEP. Short Term Goal (STG) Pt educated in transfers and abdominal ex to lessen her core abdominal pressure. STG Duration 1 wk-06/18/24 Correction Goal (LTG) Pt will be independent in a self care HEP for PF stretching and strengthening ex's, & coordinating with core /hip muscle tightening to improve pelvic stability and decreased pain.. LTG Duration 12 wks-09/03/24 Assessment Summary Assessment Pt is a 23 yo female who presents with lower abdominal pelvic pain, and with internal exam PF pain at 2 and 5 of the PF clock (lateral borders of bladder and uterus). Her uterus appears to have dropped and is palpable at finger depth of ~5 cm. She demonstrates postural deviations (incr'd lordosis/ fwd head), decreased L hip ( Hamstring, 5 deg's ER) mobility, and weakness of R hip flexors and ER's, decreased core stability. The pt will benefit from skilled physical therapy to decreased soft tissue tightness/pain, improve posture and pelvic stability, educate pt in self care pain management and methods of transfer to reduce abdminal tension and reduce core pressure and improve LE circulation. Visibly the pt demonstrates poor tissue health with PF tissues notably dry and red. The pt would probably benefit from medication to improve tissue health. The pt will benefit from skilled physical therapy to address the previous stated changes and to work towards achieving the above stated goals. Physical Therapy Plan Frequency and Duration Frequency of Treatment 1x/Week Duration of treatment (weeks) 12 Plan of Care Start Date 06/10/24 Plan of Care End Date 09/03/24 Therapeutic Interventions Therapeutic Interventions Gait Training,Home Exercise Program,Manual Therapy, Neuromuscular Re-education, Self-Care/Home Management,Soft Tissue Mobilization,Taping, Therapeutic Activities, Therapeutic Exercises Modalities Biofeedback,Electric Stimulation,Hot Packs Next Visit Focus/Plan Next Note Type Treatment Note Next Visit Plan Next: Asssess PF strength. Pt to do bladder diary and discuss fluid intake/output, training for core pressure management with core relaxation, proper deep breathing, and proper breathing with transfers and body mechanics. Ther Ex: General LE ex to improve circulation, PF relaxation, core/hip (ER, R flex) strengthening, improve hip IR and trunk extension mobility. Educate/discuss: self pain mgmt, sit to stand w/breathe, and moving in bed using breathwork and core/PF stabilization for proper abdominal pressure system, STM of PF, and abdomen (and urachus) & bladder mobility. POC: Pt education, Manual therapy. Biofeedback with vaginal sensor. Therapeutic Exercises, Therapeutic Activities, Neuromuscular Reeducation. Plan of Care Dates Plan of Care Start Date 06/10/24 Plan of Care End Date 09/03/24 Electronically Signed by: Madai Chan, PT 06/10/24 2243 If you are in agreement with this Plan of Care, please return a signed and dated copy. I have reviewed this Plan of Care and certify that the skilled therapy services above are required to meet the patient?s needs. Physician Signature Date Printed Name and Credentials Clinical Instructor Signature Printed Name and Credentials
--- NOTE | 2024-06-17 16:22 | PT.OTN ---
Current Diagnoses Postural lordosis, lumbar region (06/17/24) Low back pain, unspecified (06/17/24) Muscle weakness (generalized) (06/17/24) Deep dyspareunia (06/17/24) Physical Therapy Treatment Note PT-OP-A Visit Information Start: 06/08/24 17:39 Freq: Status: Active Protocol: Document 06/17/24 13:02 LRN (Rec: 06/17/24 13:49 LRN [id number]) Out-Patient Physical Therapy Visit Information Visit Information Visit Type Treatment Note Visit Start Time 13:02 Visit Stop Time 13:42 Visit Number 2 Evaluation Information Evaluation Date 06/10/24 Precautions Precautions Per outtake form: Fibromyalgia, neck/back pain, ADHD, PTSD, Hypermobility Spectrum Disorder PT-OP-B Current Condition Start: 06/08/24 17:39 Freq: Status: Active Protocol: Document 06/10/24 13:01 LRN (Rec: 06/10/24 13:45 LRN [id number]) Current Condition History of Current Condition Onset Date Since age 10 (2010) Current Complaints Lower abdominal and rectal pain (shooting/stabbing/ throbbing). History of Current Condition Pelvic pain every time one day before a menstrual cycle and during the entire menstrual cycle and sometimes with intercourse. When on control pills, the pain wasn't as bad, but when off of the pill the pain was much worse. She has concerns she might have endometriosis. She was on control since age 11 to 19. Recently, she from , so was seen by [facility] gynocologist for a pelvic exam and was told she did not need for surgery endometriosi, but an ultrasound showed ovary was a little odd; therefore was referred for PF therapy. Pt reports she drinks up to 32 oz of fluid a day (wgt is 130- 135#). Prior Treatments and Tests PT recently for general joint pain, therapist Delisa Ortiz . 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 Has been diagnosed with fibromyalgia for now. PMH: PTSD, ADHD, dizziness with sti<>stand. Treatment Goals Patient/Caregiver Goals Pt goals: Decrease pelvic from 8/10 to 4 /10, Pt is bedridden for 2 days, improve function with pt able to be out of bed day after the lower abdominal pain onset starts. Pt educated in self care to manage the pain. Pt will be independent in HEP. Personal Factors Other Personal Factors That May Effect Pt reports: PTSD being treated Therapy/Recovery w/sleep aid, ADHD controlled by meds, general joint pain that is being assessed for Hypermobility Spectrum Disorder PT-OP-C Subjective Start: 06/08/24 17:39 Freq: Status: Active Protocol: Document 06/17/24 13:02 LRN (Rec: 06/17/24 13:49 LRN [id number]) OP-PT Subjective Patient Comments Patient Comments Has been practicing her deep breathing. Gets rectal cramping with periods. PT-OP-I Pelvic Floor Start: 06/08/24 17:39 Freq: Status: Active Protocol: Document 06/17/24 13:02 LRN (Rec: 06/17/24 13:49 LRN [id number]) Pelvic Floor Assessment Contraction Ability Voluntary Contraction Weak Voluntary Relaxation Weak Manual Muscle Testing Left 2 Manual Muscle Testing Right 2 Manual Muscle Testing Anterior 2 Manual Muscle Testing Posterior 2 Muscle Endurance (Seconds) 2 Number of Quick Contractions In 10 6 Seconds Comments Pelvic Floor Comments Quick Contractions: Pt did not fully relax between contractions. PT-OP-J Posture/Palpation/Skin Start: 06/08/24 17:39 Freq: Status: Active Protocol: Document 06/10/24 13:01 LRN (Rec: 06/10/24 13:45 LRN [id number]) Posture Evaluation Position Standing Head/C-Spine Posture Forward Head L-Spine Posture Increased Lordosis Weight Distribution Weight Shifted Anterior Comments Posture Comments L lateral border of scapula is posterior R>L. Palpation Assessment Location Abdomen Palpation Location Lower and middle/upper abdomen Palpation Findings Tenderness Palpation Details Tenderness in lower abdomen. Soft tissue tightness in entire abdominal region. PT-OP-K Range of Motion Start: 06/08/24 17:39 Freq: Status: Active Protocol: Document 06/10/24 13:01 LRN (Rec: 06/10/24 13:45 LRN [id number]) Lumbar Spine Range of Motion Lumbar Spine Active Degrees Testing Position Standing Flexion 70 Extension 50 Rotation Left 50 Rotation Right 47 Lateral Flexion Left 25 Lateral Flexion Right 25 Hip Goniometric Range of Motion Hip Right Passive Testing Position Supine Straight Leg Raise 93 Abduction 40 Internal Rotation 50 External Rotation 75 Left Passive Testing Position Supine Straight Leg Raise 78 Abduction 40 Internal Rotation 40 External Rotation 70 PT-OP-M Strength Start: 06/08/24 17:39 Freq: Status: Active Protocol: Document 06/10/24 13:01 LRN (Rec: 06/10/24 13:45 LRN [id number]) Trunk Strength Trunk Manual Muscle Testing Core Stabilization Good trunk strength Hip Strength Hip Manual Muscle Testing Right Flexion (L2) 3+ Fair+ External Rotation 4+ Good+ Comments Strength is 5/5 except as indicated above. Left External Rotation 3+ Fair+ Comments Strength is 5/5 except as indicated above. PT-OP-Q Treatments Start: 06/08/24 17:39 Freq: Status: Active Protocol: Document 06/17/24 13:02 LRN (Rec: 06/17/24 13:49 LRN [id number]) Therapeutic Exercises Supine Exercises Long Hold Kegel Reps/Minutes 10 SH x 2 Comments PF strength assessed Quick Kegel Reps/Minutes 10x Comments PF strength assessed Fig 4 stretch Side left Lateral hip & Piriformis stretch Side left Reps/Minutes 60 SH each Hip flexor stretch Supine Exercise Name Jonah Test position Side bilateral Reps/Minutes 4' Happy Baby Pose Reps/Minutes 2' Diaphragmatic Breathing Supine Exercise Name Diaphragmatic Breathing - with and w/o use of hands for cuing. Reps/Minutes 2' Sitting Exercises Diaphragmatic Breathing Sitting Exercise Name Diaphragmatic Breathing - with and w/o use of hands for cuing. Reps/Minutes 2' Therapeutic Activity Therapeutic Activity Transfer training w/breath/Kegel Name Sup<>sit<>stand w/breath/Kegel Reps/Minutes 9' Comments Pt appears to be able to coordinate mvmt with breath to minimze core pressure, and Kegel. Manual Therapy Treatment Soft Tissue Mobilization PF Body Location Superficial > Deep PF Mobilization Type Trigger Point Release Intensity/Depth Moderate Body Position Hooklie Self-Care/Home Management Treatment Activities Self-Care/Home Management Activities Issued & reviewed HEP: Happy Baby Pose, L Piriformis stretch (x2), L Lateral Hip stretch, R Fig4 stretch (sit/ sup), and transfers with breathwork/Kegel. PT-OP-T Assessment and Plan Start: 06/08/24 17:39 Freq: Status: Active Protocol: Document 06/17/24 13:02 LRN (Rec: 06/17/24 13:49 LRN [id number]) Physical Therapy Assessment Goals Three Impairment Pelvic pain rated 8/10 prior to and during menstruation. Short Term Goal (STG) Pt will be educated in proper posturing in sit/stand/ nighttime positioning. STG Duration 2 wks-06/25/24 Shelter Goal (LTG) Decrease pelvic pain 50% to max 4/10 prior to and during menstruation. LTG Duration 12 wks-09/03/24 Two Impairment Pt bedridden 2 days prior and at start of menstruation cycle due to pain. Short Term Goal (STG) Pt educated in self care pain management and use of deep breathing to reduce her PF pain. 06/17/24: Pt educated in deep breathing for pain management . STG Duration 4 wks-07/09/24 progressed (need review) Salesperson [employer] Goal (LTG) Improve pt function at start of menstual cycle with pt able to get out of bed the day after the lower abdominal pain onset starts. LTG Duration 12 wks-09/03/24 One Impairment Pt lacks an independent self care HEP. Short Term Goal (STG) Pt educated in transfers and abdominal ex to lessen her core abdominal pressure. 06/17/24: Pt educated in transfers to coordinate mvmt with breath to minimze core pressure, and Kegel. STG Duration 1 wk-06/18/24 progressed (need abdom ex) [employer]person [employer] Goal (LTG) Pt will be independent in a self care HEP for PF stretching and strengthening ex's, & coordinating with core /hip muscle tightening to improve pelvic stability and decreased pain. 06/17/24: HEP: Happy Baby Pose, kassy Hip flexor, L lateral hip and L Piriformis stretch, R Fig 4 stretch. LTG Duration 12 wks-09/03/24 progressed Assessment Summary Assessment Pt is a 23 yo female who initially presented with lower abdominal pelvic pain, and with internal exam PF pain at 2 and 5 of the PF clock ( lateral borders of bladder uterus), now with PF pain was at 6, 8, 11 of PF clock. Today she had + response to PF trP treatment and with trng, pt able to coordinate mvmt with breath/Kegel to minimze core pressure and was able to correctly deep breath. The pt has chunky discharge; therefore she is being referred back to her physician for wellness check of of her vagina and for assessment for use of estrogen externally and possibly internally. Physical Therapy Plan Frequency and Duration Frequency of Treatment 1x/Week Duration of treatment (weeks) 12 Plan of Care Start Date 06/10/24 Plan of Care End Date 09/03/24 Next Visit Focus/Plan Next Note Type Treatment Note Next Visit Plan Next: Check if pt contacted referring physician to test for possible vaginal infection . Pt to do bladder diary and discuss fluid intake/output, training for core pressure management with core relaxation, and for proper breathing with body mechanics. Ther Ex: General LE ex to improve circulation, PF relaxation techniques, core/ hip (ER, R flex) strengthening , improve hip IR and trunk extension mobility. Educate/discuss: educate in proper posturing in sit/stand/ nighttime positioning, self pain mgmt, and moving in bed using breathwork and core/PF stabilization for proper abdominal pressure system, STM of PF, and abdomen (and urachus) & bladder mobility. POC: Pt education, Manual therapy. Biofeedback with vaginal sensor. Therapeutic Exercises, Therapeutic Activities, Neuromuscular Reeducation.
--- NOTE | 2024-10-18 17:00 | PT.OPDS ---
Current Diagnoses Postural lordosis, lumbar region (06/17/24) Low back pain, unspecified (06/17/24) Muscle weakness (generalized) (06/17/24) Deep dyspareunia (06/17/24) Visit Care Team Role Provider Type Malena Angel MD Attending Provider Non-Staff Family Provider Primary Care Provider Referring Provider Specialty: Family Practice Address: [address] [place] [address], [place], [place], [facility] Email: Visit Number Visit Number 2 Discharge Summary PT-OP-B Current Condition Start: 06/08/24 17:39 Freq: Status: Active Protocol: Document 06/10/24 13:01 LRN (Rec: 06/10/24 13:45 LRN [id number]) Current Condition History of Current Condition Onset Date Since age 10 (2010) Current Complaints Lower abdominal and rectal pain (shooting/stabbing/ throbbing). History of Current Condition Pelvic pain every time one day before a menstrual cycle and during the entire menstrual cycle and sometimes with intercourse. When on control pills, the pain wasn't as bad, but when off of the pill the pain was much worse. She has concerns she might have endometriosis. She was on control since age 11 to 19. Recently, she from , so [facility] for a pelvic exam and was told she did not need for surgery endometriosi, but an ultrasound showed ovary was a little odd; therefore was referred for PF therapy. Pt reports she drinks up to 32 oz of fluid a day (wgt is 130- 135#). Prior Treatments and Tests PT recently for general joint pain, therapist Delisa Ortiz . 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 Has been diagnosed with fibromyalgia for now. PMH: PTSD, ADHD, dizziness with sti<>stand. Treatment Goals Patient/Caregiver Goals Pt goals: Decrease pelvic from 8/10 to 4 /10, Pt is bedridden for 2 days, improve function with pt able to be out of bed day after the lower abdominal pain onset starts. Pt educated in self care to manage the pain. Pt will be independent in HEP. Personal Factors Other Personal Factors That May Effect Pt reports: PTSD being treated Therapy/Recovery w/sleep aid, ADHD controlled by meds, general joint pain that is being assessed for Hypermobility Spectrum Disorder PT-OP-C Subjective Start: 06/08/24 17:39 Freq: Status: Active Protocol: Document 06/17/24 13:02 LRN (Rec: 06/17/24 13:49 LRN [id number]) OP-PT Subjective Patient Comments Patient Comments Has been practicing her deep breathing. Gets rectal cramping with periods. PT-OP-I Pelvic Floor Start: 06/08/24 17:39 Freq: Status: Active Protocol: Document 06/17/24 13:02 LRN (Rec: 06/17/24 13:49 LRN [id number]) Pelvic Floor Assessment Contraction Ability Voluntary Contraction Weak Voluntary Relaxation Weak Manual Muscle Testing Left 2 Manual Muscle Testing Right 2 Manual Muscle Testing Anterior 2 Manual Muscle Testing Posterior 2 Muscle Endurance (Seconds) 2 Number of Quick Contractions In 10 6 Seconds Comments Pelvic Floor Comments Quick Contractions: Pt did not fully relax between contractions. PT-OP-J Posture/Palpation/Skin Start: 06/08/24 17:39 Freq: Status: Active Protocol: Document 06/10/24 13:01 LRN (Rec: 06/10/24 13:45 LRN [id number]) Posture Evaluation Position Standing Head/C-Spine Posture Forward Head L-Spine Posture Increased Lordosis Weight Distribution Weight Shifted Anterior Comments Posture Comments L lateral border of scapula is posterior R>L. Palpation Assessment Location Abdomen Palpation Location Lower and middle/upper abdomen Palpation Findings Tenderness Palpation Details Tenderness in lower abdomen. Soft tissue tightness in entire abdominal region. PT-OP-K Range of Motion Start: 06/08/24 17:39 Freq: Status: Active Protocol: Document 06/10/24 13:01 LRN (Rec: 06/10/24 13:45 LRN [id number]) Lumbar Spine Range of Motion Lumbar Spine Active Degrees Testing Position Standing Flexion 70 Extension 50 Rotation Left 50 Rotation Right 47 Lateral Flexion Left 25 Lateral Flexion Right 25 Hip Goniometric Range of Motion Hip Right Passive Testing Position Supine Straight Leg Raise 93 Abduction 40 Internal Rotation 50 External Rotation 75 Left Passive Testing Position Supine Straight Leg Raise 78 Abduction 40 Internal Rotation 40 External Rotation 70 PT-OP-M Strength Start: 06/08/24 17:39 Freq: Status: Active Protocol: Document 06/10/24 13:01 LRN (Rec: 06/10/24 13:45 LRN [id number]) Trunk Strength Trunk Manual Muscle Testing Core Stabilization Good trunk strength Hip Strength Hip Manual Muscle Testing Right Flexion (L2) 3+ Fair+ External Rotation 4+ Good+ Comments Strength is 5/5 except as indicated above. Left External Rotation 3+ Fair+ Comments Strength is 5/5 except as indicated above. PT-OP-T Assessment and Plan Start: 06/08/24 17:39 Freq: Status: Active Protocol: Document 10/18/24 16:56 LRN (Rec: 10/18/24 17:00 LRN [id number]) Physical Therapy Assessment Goals Three Impairment Pelvic pain rated 8/10 prior to and during menstruation. Short Term Goal (STG) Pt will be educated in proper posturing in sit/stand/ nighttime positioning. STG Duration 2 wks-06/25/24 Aircraft Restorer Goal (LTG) Decrease pelvic pain 50% to max 4/10 prior to and during menstruation. LTG Duration 12 wks-09/03/24 Two Impairment Pt bedridden 2 days prior and at start of menstruation cycle due to pain. Short Term Goal (STG) Pt educated in self care pain management and use of deep breathing to reduce her PF pain. 06/17/24: Pt educated in deep breathing for pain management . STG Duration 4 wks-07/09/24 progressed (need review) Detention Goal (LTG) Improve pt function at start of menstual cycle with pt able to get out of bed the day after the lower abdominal pain onset starts. LTG Duration 12 wks-09/03/24 One Impairment Pt lacks an independent self care HEP. Short Term Goal (STG) Pt educated in transfers and abdominal ex to lessen her core abdominal pressure. 06/17/24: Pt educated in transfers to coordinate mvmt with breath to minimze core pressure, and Kegel. STG Duration 1 wk-06/18/24 progressed (need abdom ex) Aircraft Restorer Goal (LTG) Pt will be independent in a self care HEP for PF stretching and strengthening ex's, & coordinating with core /hip muscle tightening to improve pelvic stability and decreased pain. 06/17/24: HEP: Happy Baby Pose, kassy Hip flexor, L lateral hip and L Piriformis stretch, R Fig 4 stretch. LTG Duration 12 wks-09/03/24 progressed Assessment Summary Assessment Pt is a 23 yo female who initially presented with lower abdominal pelvic pain and a chunky discharge; pt was referred back to her referring physician for vaginal wellness check. The pt found another clinic with more availability and requested DC 06/29/24. The pt is discharged from PT at pt request. Goals were not met due to early discharge. Physical Therapy Plan Discharge Physical Therapy Discharge Reasons Patient Request Discharge Comments Thank you for your referral.
== END 2024-10-28 10:27 | disposition home or self-care (01) ==
LOC: PHYS 13:00
PROVIDERS: Family Provider Family Medicine; PCP Family Medicine; Referring Provider Family Medicine; Visit Provider Family Medicine
DX: N94.12 Deep dyspareunia (principal); M62.81 Muscle weakness (generalized); M40.46 Postural lordosis, lumbar region; M54.50 Low back pain, unspecified
CPT/HCPCS: 97110; 97140; 97162; 97530; 97535